=== PATIENT | female | born 1965 | race Asian ===

== ENCOUNTER 2020-04-13 12:55 | Emergency (ER) | payer OTHER ==
[2020-04-13 13:13] VITALS: BMI 33.3
--- NOTE | 2020-04-13 14:10 | PDOC ---
History of Present Illness - General Chief Complaint: AV shunt bleeding Stated Complaint: RT ARM BLEED Time Seen by Provider: 04/13/20 13:24 History Source: Family Exam Limitations: Language Barrier - History of Present Illness Initial Comments: 55 y.o female with history antiphospholipid syndrome, CKD on dialysis with left arm AV fistula, DVT on warfarin, DM, and HTN presents to the ED with bleeding from AV shunt in left arm. She was at dialysis yesterday and had bleeding from the AV shunt site immediately after needle injection, they were unable to complete dialysis. She's had continuous bleeding from the site, but not a significant amount. Her PCP told her to decrease from warfarin BID to qday. She denies lightheadedness, dizziness, syncope, skin changes or rashes. Denies chest pain, SOB, nausea/vomiting, diarrhea, constipation, urinary symptoms, weakness, numbness or tingling. PMH: see HPI SH: Left arm AV Shunt placement, IVC filter Allergies: NKDA Meds: Warfarin, allopurinol Past History - Medical History Allergies/Adverse Reactions: Allergies Allergy/AdvReac Type Severity Reaction Status Date / Time No Known Drug Allergies Allergy Verified 12/02/13 06:27 Home Medications: Ambulatory Orders Ergocalciferol (Vitamin D2) [Vitamin D] 50,000 unit PO DAILY 12/02/13 Ibuprofen [Motrin -] 800 mg PO TID PRN #30 tablet 12/02/13 Iron,Carbonyl [Iron] 45 mg PO DAILY 12/02/13 Misoprostol [Cytotec] 200 mcg PO UTDICT 12/02/13 Anemia: Yes COPD: No Diabetes: Yes Dialysis: Yes GI Disorders: Yes (ESRD) HTN: Yes - Psycho-Social/Smoking History Smoking History: Never smoked Have you smoked in the past 12 months: No Information on smoking cessation initiated: No - Substance Abuse Hx (Audit-C & DAST Scrn) How often the patient has a drink containing alcohol: Never Score: In Men: 4 or > Positive; In Women: 3 or > Positive: 0 Screen Result (Pos requires Nsg. Audit-10AR): Negative In the last yr the pt used illegal drug/Rx for NonMed reason: No Score: Yes response is considered Positive: 0 Screen Result (Positive result requires Nsg. DAST-10): Negative Review of Systems - Review of Systems Able to Perform ROS?: Yes Is the patient limited Pakistani proficient: Yes Constitutional: No: Chills, Fever Respiratory: No: Cough, Shortness of Breath Cardiac (ROS): No: Chest Pain, Edema, Lightheadedness, Palpitations, Syncope ABD/GI: No: Constipated, Diarrhea, Nausea, Vomiting : No: Burning, Dysuria, Frequency Integumentary: No: Bruising, Change in Color, Rash Neurological: No: Numbness, Tingling, Weakness All Other Systems: Reviewed and Negative *Physical Exam - Vital Signs Last Vital Signs Temp Pulse Resp BP Pulse Ox 98.6 F 84 17 136/73 97 04/13/20 12:55 04/13/20 12:55 04/13/20 12:55 04/13/20 12:55 04/13/20 12:55 - Physical Exam General Appearance: Yes: Nourished, Appropriately Dressed. No: Apparent Distress HEENT: positive: EOMI Neck: positive: Trachea midline Respiratory/Chest: positive: Lungs Clear, Normal Breath Sounds. negative: Resp iratory Distress Cardiovascular: positive: Regular Rhythm, Regular Rate, S1, S2, Other (continuous machine-like murmur at left side of chest correlating with left arm AV fistula ) Comments:: 2+ left radial pulse Extremity: positive: Other (left arm sensation and pulses intact; no active bleeding from left arm fistula) Heart Score/ECG Review - Electrocardiogram EKG: Normal - Age Age: 45-65 - ECG Intrepretation Rhythm: Regular Rhythm - [place]: Normal ED Treatment Course - LABORATORY CBC & Chemistry Diagram: 04/13/20 14:05 04/13/20 14:05 Medical Decision Making - Medical Decision Making 55 y.o female with history antiphospholipid syndrome, CKD on dialysis with left arm AV fistula, DVT on warfarin, DM, and HTN presents to the ED with continued bleeding from AV fistula in left arm prior to dialysis yesterday but did not recieve dialysis. She had no other complaints. On exam, the fistula was not actively bleeding. EKG had regular rate, rhythm, axis, without significantly peaked T-waves. CBC demonstrated Hgb 9.3. CMP demonstrated K 4.3, bicarb of 26, Cr 6.2. Coags demonstrated PT 25.9, PTT 102.7, and INR 2.18. I spoke with her bottom steep tender Dr. Jordan Berman, who stated that based on her labs did not require emergent dialysis, but to recommend discharging her home and have her follow up with dialysis tomorrow. Patient is stable and there was no active bleeding from the fistula site, and safe for discharge. 04/13/20 17:15 Discharge - Discharge Information Problems reviewed: Yes Clinical Impression/Diagnosis: Bleeding Condition: Stable Disposition: HOME - Admission No - Follow up/Referral Referrals: Cullen Hernandez MD [Primary Care Provider] - - Patient Discharge Instructions Patient Printed Discharge Instructions: DI for Arteriovenous Fistula for Dialysis Additional Instructions: You came to the ED for continued bleeding from AV fistula site prior to dialysis yesterday. We did labs and EKG which were normal. Some of the labs (coagulation studies) were elevated, and informed Dr. Jordan Berman of the labs. He said that emergent dialysis was not needed today, and to be discharged home and to follow up with dialysis tomorrow, FridayApril 14. Return to the ED if you feel palpitations, chest pain, SOB, or loss of consciousness. - Post Discharge Activity
[2020-04-13 14:43] LABS: BASO % 0.9 % (0-2.0); EOS % 3.7 % (0-4.5); HEMATOCRIT 27.6 % (32.4-45.2); HEMOGLOBIN 9.3 GM/dL (10.7-15.3); LYMPH % 33.7 % (8-40); MCH 30.4 pg (25.7-33.7); MCHC 33.8 g/dl (32.0-36.0); MEAN CELL VOLUME 89.9 fl (80-96); MEAN PLT VOLUME 8.3 fl (7.5-11.1); MONO % 8.7 % (3.8-10.2); PLATELET COUNT 175 K/MM3 (134-434); RBC 3.07 M/mm3 (3.60-5.2); RDW 14.2 % (11.6-15.6); WHITE BLOOD COUNT 5.1 K/mm3 (4.0-10.0)
[2020-04-13 14:50] LABS: INR 2.18 (0.83-1.09); PROTHROMBIN TIME (PATIENT) 25.9 SEC (9.7-13.0)
[2020-04-13 14:53] LABS: ACTIVATED PTT 102.7 SECONDS (25.2-36.5)
[2020-04-13 15:07] LABS: ALBUMIN 3.5 g/dl (3.4-5.0); BILIRUBIN,TOTAL 0.3 mg/dL (0.2-1); BLOOD UREA NITROGEN 62.6 mg/dL (7-18); CALCIUM 7.8 mg/dL (8.5-10.1); CREATININE 6.2 mg/dL (0.55-1.3); POTASSIUM 4.3 mmol/L (3.5-5.1)
--- NOTE | 2020-04-13 15:40 | PDOC ---
Documentation entered by Yasmeen Brand SCRIBE, acting as scribe for Patti Valera MD. Patti Valera MD: This documentation has been prepared by the Cathie quevedo Brenda, SCRIBE, under my direction and personally reviewed by me in its entirety. I confirm that the documentation accurately reflects all work, treatment, procedures, and medical decision making performed by me. Attending Attestation - Resident Resident Name: Bhanu Figueroa - ED Attending Attestation I have performed the following: I have examined & evaluated the patient, The case was reviewed & discussed with the resident, I agree w/resident's findings & plan, Exceptions are as noted - HPI HPI: 04/13/20 14:59 The patient is a 55 year old female with a significant PMH of antiphospholipid syndrome, CKD on dialysis with left arm AV fistula, DVT on warfarin, DM, and HTN who presents to the ED BIBA from her dialysis center for evaluation of AV shunt bleeding. Patient notes that when she was getting fluids in for dialysis, her AV sunt began bleeding so she was sent to the ED via EMS and her bleeding reolved with pressure while in the ambulance. The patient denies chest pain, shortness of breath, headache and dizziness. Denies fever, chills, nausea, vomiting, diarrhea and constipation. Denies dysuria, frequency, urgency and hematuria. Allergies: NKA Social history: No reported hx of tobacco use, alcohol use or illicit drug use. Nephro: Cullen Hernandez - Physicial Exam PE: 04/13/20 15:09 GENERAL: Awake, alert, and fully oriented, in no acute distress LUNGS: Breath sounds equal, clear to auscultation bilaterally. No wheezes, and no crackles HEART: Regular rate and rhythm, normal S1 and S2, no murmurs, rubs or gallops ABDOMEN: Soft, nontender, normoactive bowel sounds. No guarding, no rebound. No masses EXTREMITIES: (+) On LUE there are 3 puncture wounds with no active bleeding. AV Shunt has intact thrill. Normal range of motion, no edema. No clubbing or cyanosis. No cords, erythema, or tenderness NEUROLOGICAL: Cranial nerves II through XII grossly intact. Normal speech, normal gait SKIN: Warm, Dry, normal turgor, no rashes or lesions noted. - Medical Decision Making 04/13/20 15:25 Pt presents to the ED complaining of bleeding from dialysis access. Resolved after pressure by EMS. Denies other complaints. Labs are within normal limits except for elevated ptt. Will discuss with Dr. Ortega for HD vs discharge home. Will reassess. Discharge - Discharge Information Problems reviewed: Yes Clinical Impression/Diagnosis: Bleeding Condition: Stable Disposition: HOME - Follow up/Referral Referrals: Cullen Hernandez MD [Primary Care Provider] - - Patient Discharge Instructions Patient Printed Discharge Instructions: DI for Arteriovenous Fistula for Dialysis Additional Instructions: You came to the ED for continued bleeding from AV fistula site prior to dialysis yesterday. We did labs and EKG which were normal. Some of the labs (coagulation studies) were elevated, and informed Dr. Jordan Berman of the labs. He said that emergent dialysis was not needed today, and to be discharged home and to follow up with dialysis tomorrow, FridayApril 14. Return to the ED if you feel palpitations, chest pain, SOB, or loss of consciousness. - Post Discharge Activity
[2020-04-13 17:04] VITALS: BP 136/78; PULSE 74; TEMP 98.3
--- NOTE | 2020-04-14 10:26 | EKG ---
Test Reason : Blood Pressure : / mmHG Vent. Rate : 071 BPM Atrial Rate : 071 BPM P-R Int : 176 ms QRS Dur : 082 ms QT Int : 446 ms P-R-T Axes : 041 014 043 degrees QTc Int : 484 ms NORMAL SINUS RHYTHM MINIMAL VOLTAGE CRITERIA FOR LVH, MAY BE NORMAL VARIANT PROLONGED QT ABNORMAL ECG WHEN COMPARED WITH ECG OF 27-NOV-2013 10:28, QT HAS LENGTHENED Confirmed by ALLISON DEL RIO, LON ([id number]) on 04/14/2020 10:25:39 AM Referred By: Confirmed By:LON COOPER MD
== END 2020-04-13 17:21 | disposition home or self-care (01) ==
LOC: JER 12:55
DX: R58 Hemorrhage, not elsewhere classified (principal)
CPT/HCPCS: 36415; 80053; 85025; 85610; 85730; 93005; 93010; 99284-25

== ENCOUNTER 2021-08-09 18:15 | Emergency (ER) | payer OTHER ==
[2021-08-09 18:44] VITALS: BP 128/72; PULSE 74; TEMP 98.6; BMI 27.4
== END 2021-08-09 19:30 | disposition left against medical advice (07) ==
LOC: FER 18:15
DX: R10.11 Right upper quadrant pain (principal); R11.2 Nausea with vomiting, unspecified
CPT/HCPCS: 99283-25

== ENCOUNTER 2022-01-07 10:42 | Inpatient (IN) | payer OTHER ==
[2022-01-07 11:26] LABS: BASO % 0.7 % (0-2.0); EOS % 2.2 % (0-4.5); HEMATOCRIT 33.1 % (32.4-45.2); LYMPH % 20.6 % (8-40); MCH 30.9 pg (25.7-33.7); MCHC 33.3 g/dl (32.0-36.0); MEAN CELL VOLUME 92.9 fl (80-96); MEAN PLT VOLUME 8.6 fl (7.5-11.1); MONO % 4.1 % (3.8-10.2); NEUT % 72.4 % (42.8-82.8); PLATELET COUNT 238 10^3/uL (134-434); RBC 3.56 M/mm3 (3.60-5.2); RDW 14.4 % (11.6-15.6); WHITE BLOOD COUNT 10.5 K/mm3 (4.0-10.0)
[2022-01-07 11:32] LABS: INR 2.81 (0.83-1.09); PROTHROMBIN TIME (PATIENT) 32.7 SEC (9.7-13.0)
[2022-01-07 11:35] LABS: ACTIVATED PTT 98.6 SECONDS (25.2-36.5)
[2022-01-07] MEDS ORDERED: ACETAMINOPHEN 1000 MG/100 ML BAG IVPB ONE (11:42)
[2022-01-07] MEDS ORDERED: ACETAMINOPHEN INJECTION 100 ML IVPB ONE (11:45)
[2022-01-07 11:46] LABS: VENOUS BASE EXCESS -1.3 mmol/L (-2-2); VENOUS O2 SATURATION 94.4 % (70-80); VENOUS PCO2 40.7 mmHg (38-52); VENOUS PH 7.383 (7.310-7.410)
[2022-01-07 11:50] LABS: CHLORIDE 97 mmol/L (98-107); SODIUM 136 mmol/L (136-145)
[2022-01-07 11:53] LABS: CALCIUM 7.9 mg/dL (8.5-10.1)
[2022-01-07 11:54] LABS: ALBUMIN 3.6 g/dl (3.4-5.0); ANION GAP 14 MMOL/L (8-16); BLOOD UREA NITROGEN 67.5 mg/dL (7-18); CO2 26 mmol/L (21-32); GLUCOSE,RANDOM 163 mg/dL (74-106)
[2022-01-07 11:57] LABS: SGOT/AST 81 U/L (15-37); SGPT/ALT 173 U/L (13-61)
[2022-01-07 11:59] LABS: BILIRUBIN,TOTAL 0.5 mg/dL (0.2-1); TOT PROT 7.6 g/dl (6.4-8.2)
[2022-01-07 12:00] LABS: ALK PHOS 169 U/L (45-117)
[2022-01-07] MEDS ORDERED: morphine CARPU-JECT 2 MG/1 ML DISP.SYRIN IVPUSH ONE (12:05)
[2022-01-07 12:08] LABS: EPI CELLS 27 /uL (0-25.1); HYALINE CASTS 1 /uL (0-3.1); PH,URINE >= 9.0 (5.0-8.0); URINE APPEARANCE CLEAR; URINE BACTERIA 184 /uL (0-1359); URINE BILIRUBIN NEGATIVE (NEGATIVE); URINE COLOR YELLOW; URINE GLUCOSE (UA) TRACE (NEGATIVE); URINE KETONE NEGATIVE (NEGATIVE); URINE LEUK ESTERASE NEGATIVE (NEGATIVE); URINE NITRITE NEGATIVE (NEGATIVE); URINE PROTEIN 3+ (NEGATIVE); URINE RBC 3 /uL (0-23.9); URINE UROBILINOGEN 0.2 mg/dL (0.2-1.0); URINE WBC 26 /uL (0-25.8)
[2022-01-07 12:11] LABS: CREATININE 8.2 mg/dL (0.55-1.3)
[2022-01-07] MEDS ORDERED: CEFTRIAXONE 1 GM in DEXTROSE 5%-WATER - 50 ML IVPB ONE (12:40)
[2022-01-07] MEDS ORDERED: AZITHROMYCIN IVPB 500 MG in DEXTROSE 5%-WATER - 250 ML IVPB ONE (12:41)
[2022-01-07] MEDS ORDERED: CEFTRIAXONE 1 GM/50 ML BAG ONE (12:50)
[2022-01-07] MEDS ORDERED: AZITHROMYCIN IVPB 500 MG/250 ML BAG IVPB ONE (12:50)
[2022-01-07] MEDS ORDERED: FUROSEMIDE 40 MG/4 ML INJECTABLE VIAL IVPUSH ONE ×2 (13:49→15:22)
[2022-01-07] MEDS ORDERED: ONDANSETRON 4 MG/2 ML VIAL IVPUSH ONE (13:55)
[2022-01-07] MEDS ORDERED: ONDANSETRON 4 MG/2 ML VIAL ONE (13:57)
[2022-01-07] MEDS ORDERED: FUROSEMIDE 40 MG/4 ML INJECTABLE VIAL ONE ×2 (14:01→14:23)
[2022-01-07] MEDS ORDERED: RAPID SEQUENCE INTUBATION KIT NR ONE (14:06)
[2022-01-07] MEDS ORDERED: SODIUM CHLORIDE 250 ML IV PRN (14:11)
[2022-01-07] MEDS ORDERED: FENTANYL NS IVPB 500 MCG/100 ML BAG IVPB SCH (14:30)
[2022-01-07] MEDS ORDERED: MIDAZOLAM IN 0.9 % SOD.CHLORID 1 MG/1 ML PLAST..BAG ONE (14:47)
[2022-01-07] MEDS: MIDAZOLAM IN 0.9 % SOD.CHLORID 100 MG/100 ML PLAST..BAG IVPB SCH (14:50)
[2022-01-07] MEDS ORDERED: ROCURONIUM BROMIDE 50 MG/5 ML VIAL IVPUSH ONE (15:17)
[2022-01-07] MEDS ORDERED: ETOMIDATE 40 MG/20 ML VIAL IVPUSH ONE (15:17)
[2022-01-07] MEDS: PROPOFOL 1,000,000 MCG/100 ML VIAL IVPB SCH (15:21)
[2022-01-07] MEDS: INSULIN SLIDING SCALE (NOVOLOG) 1 VIAL SQ SCH ×2 (21:15→21:22)
[2022-01-07] MEDS: HEPARIN NA (PORCINE) 5,000 UNITS/ML 1ML VIAL SQ SCH (21:21)
[2022-01-07] MEDS: CHLORHEXIDINE GLUCONATE 4% CLEANSER FOR DECOLONIZATION TP SCH (21:22)
[2022-01-07] MEDS: MUPIROCIN 2% TOPICAL OINTMENT FOR DECOLONIZATION NS SCH (21:22)
[2022-01-07] MEDS: ROSUVASTATIN CA 10 MG TABLET PO SCH (21:22)
[2022-01-08] MEDS ORDERED: ACETAMINOPHEN 1000 MG/100 ML BAG IVPB ONE (03:10)
[2022-01-08] MEDS: HEPARIN NA (PORCINE) 5,000 UNITS/ML 1ML VIAL SQ SCH (05:37)
[2022-01-08] MEDS ORDERED: DEXTROSE 50%-WATER - 25 GM/50 ML VIAL IVPUSH ONE (06:04)
[2022-01-08] MEDS ORDERED: DEXTROSE 50%-WATER 25 GM/50 ML DISP.SYRIN ONE (06:07)
[2022-01-08] MEDS: LEVOTHYROXINE NA 25 MCG TABLET (FP) PO SCH (06:08)
[2022-01-08] MEDS: INSULIN SLIDING SCALE (NOVOLOG) 1 VIAL SQ SCH ×4 (06:08→22:28)
[2022-01-08 06:50] LABS: BASO % 0.7 % (0-2.0); HEMATOCRIT 25.5 % (32.4-45.2); HEMOGLOBIN 8.5 GM/dL (10.7-15.3); LYMPH % 19.2 % (8-40); MCH 31.5 pg (25.7-33.7); MCHC 33.5 g/dl (32.0-36.0); MEAN PLT VOLUME 8.6 fl (7.5-11.1); MONO % 5.1 % (3.8-10.2); PLATELET COUNT 164 10^3/uL (134-434); RBC 2.71 M/mm3 (3.60-5.2); RDW 14.4 % (11.6-15.6); WHITE BLOOD COUNT 6.2 K/mm3 (4.0-10.0)
[2022-01-08] MEDS: MIDAZOLAM IN 0.9 % SOD.CHLORID 100 MG/100 ML PLAST..BAG IVPB SCH ×2 (08:16→17:09)
[2022-01-08 08:58] LABS: CHLORIDE 99 mmol/L (98-107); SODIUM 136 mmol/L (136-145)
[2022-01-08 09:01] LABS: BLOOD UREA NITROGEN 83.4 mg/dL (7-18); CO2 19 mmol/L (21-32); GLUCOSE,RANDOM 79 mg/dL (74-106); MAGNESIUM 2.9 mg/dL (1.8-2.4)
[2022-01-08 09:04] LABS: PHOSPHOROUS 6.2 mg/dL (2.5-4.9); SGOT/AST 37 U/L (15-37); SGPT/ALT 103 U/L (13-61)
[2022-01-08 09:06] LABS: BILIRUBIN,TOTAL 0.4 mg/dL (0.2-1); TOT PROT 6.3 g/dl (6.4-8.2)
[2022-01-08 09:11] LABS: ALBUMIN 2.7 g/dl (3.4-5.0); ALK PHOS 125 U/L (45-117); ANION GAP 19 MMOL/L (8-16); CREATININE 9.8 mg/dL (0.55-1.3)
[2022-01-08] MEDS: ALBUMIN HUMAN 25% 100 ML VIAL IV SCH ×2 (09:58→10:39)
[2022-01-08] MEDS ORDERED: EPOETIN ALFA-EPBX 3,000 UNIT/ML VIAL SQ ONE (10:00)
[2022-01-08] MEDS: metoPROLOL SUCCINATE 25 MG TAB.SR.24H (FP) PO SCH (10:16)
[2022-01-08] MEDS: MUPIROCIN 2% TOPICAL OINTMENT FOR DECOLONIZATION NS SCH ×2 (10:16→21:55)
[2022-01-08] MEDS: ALLOPURINOL 100 MG TABLET (FP) PO SCH (10:16)
[2022-01-08] MEDS: VERAPAMIL HCL 180 MG E.R. TABLET PO SCH ×2 (14:27)
[2022-01-08] MEDS: PROPOFOL 1,000,000 MCG/100 ML VIAL IVPB SCH ×2 (14:29→21:00)
[2022-01-08] MEDS: ROSUVASTATIN CA 10 MG TABLET PO SCH (21:54)
[2022-01-08] MEDS: CHLORHEXIDINE GLUCONATE 4% CLEANSER FOR DECOLONIZATION TP SCH (21:55)
[2022-01-09] MEDS: PROPOFOL 1,000,000 MCG/100 ML VIAL IVPB SCH ×3 (05:00→22:17)
[2022-01-09] MEDS: LEVOTHYROXINE NA 25 MCG TABLET (FP) PO SCH (06:20)
[2022-01-09] MEDS: INSULIN SLIDING SCALE (NOVOLOG) 1 VIAL SQ SCH ×4 (06:20→22:15)
[2022-01-09 07:26] LABS: BASO % 1.2 % (0-2.0); HEMOGLOBIN 8.2 GM/dL (10.7-15.3); LYMPH % 21.9 % (8-40); MEAN CELL VOLUME 93.8 fl (80-96); MEAN PLT VOLUME 8.8 fl (7.5-11.1); MONO % 6.5 % (3.8-10.2); NEUT % 66.4 % (42.8-82.8); PLATELET COUNT 174 10^3/uL (134-434); RBC 2.66 M/mm3 (3.60-5.2); RDW 14.7 % (11.6-15.6); WHITE BLOOD COUNT 4.6 K/mm3 (4.0-10.0)
[2022-01-09] MEDS: MIDAZOLAM IN 0.9 % SOD.CHLORID 100 MG/100 ML PLAST..BAG IVPB SCH (08:06)
[2022-01-09 08:17] LABS: ALBUMIN 2.8 g/dl (3.4-5.0); MAGNESIUM 2.5 mg/dL (1.8-2.4)
[2022-01-09 08:20] LABS: CREATININE 6.8 mg/dL (0.55-1.3); PHOSPHOROUS 5.2 mg/dL (2.5-4.9)
[2022-01-09 08:21] LABS: BILIRUBIN,TOTAL 0.5 mg/dL (0.2-1); TOT PROT 6.3 g/dl (6.4-8.2)
[2022-01-09] MEDS: HEPARIN NA (PORCINE) 5,000 UNITS/ML 1ML VIAL SQ SCH ×2 (08:26→15:08)
[2022-01-09 08:39] LABS: BLOOD UREA NITROGEN 49.6 mg/dL (7-18); CALCIUM 8.3 mg/dL (8.5-10.1)
[2022-01-09] MEDS: ALLOPURINOL 100 MG TABLET (FP) PO SCH (09:13)
[2022-01-09] MEDS: MUPIROCIN 2% TOPICAL OINTMENT FOR DECOLONIZATION NS SCH ×2 (09:13→22:14)
[2022-01-09] MEDS: metoPROLOL SUCCINATE 25 MG TAB.SR.24H (FP) PO SCH (09:13)
[2022-01-09] MEDS: VERAPAMIL HCL 180 MG E.R. TABLET PO SCH (09:13)
[2022-01-09 09:59] LABS: INR 1.93 (0.83-1.09); PROTHROMBIN TIME (PATIENT) 22.4 SEC (9.7-13.0)
[2022-01-09 10:01] LABS: ACTIVATED PTT 84.8 SECONDS (25.2-36.5)
[2022-01-09] MEDS ORDERED: FUROSEMIDE 40 MG/4 ML INJECTABLE VIAL IVPUSH ONE (14:09)
[2022-01-09] MEDS ORDERED: WARFARIN NA 5 MG TABLET PO SCH (22:00)
[2022-01-09] MEDS: ROSUVASTATIN CA 10 MG TABLET PO SCH (22:14)
[2022-01-09] MEDS: CHLORHEXIDINE GLUCONATE 4% CLEANSER FOR DECOLONIZATION TP SCH (22:15)
[2022-01-10] MEDS: LEVOTHYROXINE NA 25 MCG TABLET (FP) PO SCH (06:34)
[2022-01-10] MEDS: INSULIN SLIDING SCALE (NOVOLOG) 1 VIAL SQ SCH ×4 (06:35→21:34)
[2022-01-10] MEDS ORDERED: SODIUM CHLORIDE 250 ML IV PRN (07:17)
[2022-01-10 07:26] LABS: EOS % 3.8 % (0-4.5); HEMATOCRIT 24.4 % (32.4-45.2); HEMOGLOBIN 8.3 GM/dL (10.7-15.3); LYMPH % 18.8 % (8-40); MCH 31.5 pg (25.7-33.7); MCHC 34.1 g/dl (32.0-36.0); MEAN CELL VOLUME 92.2 fl (80-96); MEAN PLT VOLUME 8.1 fl (7.5-11.1); MONO % 7.1 % (3.8-10.2); NEUT % 69.3 % (42.8-82.8); PLATELET COUNT 194 10^3/uL (134-434); RBC 2.65 M/mm3 (3.60-5.2); RDW 14.4 % (11.6-15.6); WHITE BLOOD COUNT 4.8 K/mm3 (4.0-10.0)
[2022-01-10 07:34] LABS: INR 1.6 (0.83-1.09); PROTHROMBIN TIME (PATIENT) 18.5 SEC (9.7-13.0)
[2022-01-10 07:40] LABS: CHLORIDE 101 mmol/L (98-107); SODIUM 140 mmol/L (136-145)
[2022-01-10 07:47] LABS: ALBUMIN 2.8 g/dl (3.4-5.0); ANION GAP 13 MMOL/L (8-16); BLOOD UREA NITROGEN 71.8 mg/dL (7-18); CALCIUM 7.9 mg/dL (8.5-10.1); CO2 26 mmol/L (21-32); GLUCOSE,RANDOM 122 mg/dL (74-106)
[2022-01-10 07:48] LABS: MAGNESIUM 2.8 mg/dL (1.8-2.4)
[2022-01-10 07:49] LABS: SGPT/ALT 73 U/L (13-61)
[2022-01-10 07:50] LABS: PHOSPHOROUS 7.3 mg/dL (2.5-4.9); SGOT/AST 44 U/L (15-37)
[2022-01-10 07:51] LABS: BILIRUBIN,TOTAL 0.5 mg/dL (0.2-1); TOT PROT 6.4 g/dl (6.4-8.2)
[2022-01-10 08:00] LABS: ALK PHOS 187 U/L (45-117); CREATININE 8.3 mg/dL (0.55-1.3)
[2022-01-10] MEDS: ALBUMIN HUMAN 25% 12.5 GM/50 ML VIAL IV SCH ×2 (08:00→08:30)
[2022-01-10] MEDS ORDERED: EPOETIN ALFA-EPBX 4,000 UNIT/ML VIAL SQ ONE (08:00)
[2022-01-10] MEDS: PROPOFOL 1,000,000 MCG/100 ML VIAL IVPB SCH ×5 (08:06→21:33)
[2022-01-10] MEDS: MIDAZOLAM IN 0.9 % SOD.CHLORID 100 MG/100 ML PLAST..BAG IVPB SCH (10:09)
[2022-01-10] MEDS: AMINO ACIDS/PROTEIN HYDROLYS 30 ML LIQUID.PKT PO SCH (11:01)
[2022-01-10] MEDS: ALLOPURINOL 100 MG TABLET (FP) PO SCH (11:01)
[2022-01-10] MEDS: metoPROLOL SUCCINATE 25 MG TAB.SR.24H (FP) PO SCH (11:01)
[2022-01-10] MEDS: VERAPAMIL HCL 180 MG E.R. TABLET PO SCH (11:01)
[2022-01-10] MEDS: MUPIROCIN 2% TOPICAL OINTMENT FOR DECOLONIZATION NS SCH ×2 (11:01→21:33)
[2022-01-10] MEDS: FUROSEMIDE INJECTION 100 MG in SODIUM CHLORIDE 40 ML IVPB SCH ×2 (11:32→21:34)
[2022-01-10] MEDS ORDERED: WARFARIN NA 7.5 MG TABLET PO SCH (18:00)
[2022-01-10] MEDS ORDERED: WARFARIN NA 5 MG TABLET PO SCH (18:00)
[2022-01-10] MEDS: ACETAMINOPHEN 1000 MG/100 ML BAG IVPB PRN (18:54)
[2022-01-10] MEDS: ROSUVASTATIN CA 10 MG TABLET PO SCH (21:33)
[2022-01-10] MEDS: CHLORHEXIDINE GLUCONATE 4% CLEANSER FOR DECOLONIZATION TP SCH (21:34)
[2022-01-11] MEDS: LEVOTHYROXINE NA 25 MCG TABLET (FP) PO SCH ×2 (07:14→07:16)
[2022-01-11] MEDS: MIDAZOLAM IN 0.9 % SOD.CHLORID 100 MG/100 ML PLAST..BAG IVPB SCH ×2 (07:14→14:09)
[2022-01-11] MEDS: INSULIN SLIDING SCALE (NOVOLOG) 1 VIAL SQ SCH ×4 (07:14→21:41)
[2022-01-11 07:26] LABS: INR 1.3 (0.83-1.09)
[2022-01-11 07:29] LABS: BASO % 1.3 % (0-2.0); HEMATOCRIT 24.7 % (32.4-45.2); HEMOGLOBIN 8.5 GM/dL (10.7-15.3); LYMPH % 17.6 % (8-40); MCH 31.7 pg (25.7-33.7); MCHC 34.2 g/dl (32.0-36.0); MEAN CELL VOLUME 92.7 fl (80-96); MEAN PLT VOLUME 7.8 fl (7.5-11.1); NEUT % 68.1 % (42.8-82.8); PLATELET COUNT 220 10^3/uL (134-434); RBC 2.67 M/mm3 (3.60-5.2); RDW 14.2 % (11.6-15.6); WHITE BLOOD COUNT 4.3 K/mm3 (4.0-10.0)
[2022-01-11 08:04] LABS: ALBUMIN 3.1 g/dl (3.4-5.0); CALCIUM 8.3 mg/dL (8.5-10.1)
[2022-01-11 08:05] LABS: BLOOD UREA NITROGEN 48.7 mg/dL (7-18); MAGNESIUM 2.5 mg/dL (1.8-2.4)
[2022-01-11 08:07] LABS: CREATININE 5.6 mg/dL (0.55-1.3); PHOSPHOROUS 6.1 mg/dL (2.5-4.9)
[2022-01-11 08:09] LABS: BILIRUBIN,TOTAL 0.7 mg/dL (0.2-1); TOT PROT 6.8 g/dl (6.4-8.2)
[2022-01-11] MEDS: PROPOFOL 1,000,000 MCG/100 ML VIAL IVPB SCH ×3 (09:07→21:41)
[2022-01-11] MEDS: PANTOPRAZOLE SODIUM 40 MG VIAL IVPUSH SCH (09:23)
[2022-01-11] MEDS: AMINO ACIDS/PROTEIN HYDROLYS 30 ML LIQUID.PKT PO SCH (09:24)
[2022-01-11] MEDS: ALLOPURINOL 100 MG TABLET (FP) PO SCH (09:24)
[2022-01-11] MEDS: MUPIROCIN 2% TOPICAL OINTMENT FOR DECOLONIZATION NS SCH ×2 (09:24→21:41)
[2022-01-11] MEDS: metoPROLOL SUCCINATE 25 MG TAB.SR.24H (FP) PO SCH (09:24)
[2022-01-11] MEDS: VERAPAMIL HCL 180 MG E.R. TABLET PO SCH (09:24)
[2022-01-11] MEDS ORDERED: WARFARIN NA 5 MG TABLET PO ONE (10:00)
[2022-01-11] MEDS ORDERED: PIPERACILLIN/TAZOB 2.25 GM 2.25 GM in DEXTROSE 5%-WATER - 50 ML IVPB SCH (10:30)
[2022-01-11] MEDS ORDERED: PIPERACILLIN/TAZOBACTAM 2.25 GM VIAL IVPB ONE ×4 (10:46→20:21)
[2022-01-11] MEDS ORDERED: DEXTROSE 5%-WATER - 50 ML IVPB ONE ×4 (10:46→20:21)
[2022-01-11] MEDS: PIPERACILLIN/TAZOB 2.25 GM 2.25 GM in DEXTROSE 5%-WATER - 50 ML IVPB SCH ×3 (10:52→21:45)
[2022-01-11] MEDS: FUROSEMIDE INJECTION 100 MG in SODIUM CHLORIDE 40 ML IVPB SCH (11:53)
[2022-01-11] MEDS: ACETAMINOPHEN 1000 MG/100 ML BAG IVPB PRN ×2 (11:59→18:09)
[2022-01-11] MEDS ORDERED: HEPARIN NA (PORCINE) 5,000 UNITS/ML 1ML VIAL SQ SCH (14:00)
[2022-01-11] MEDS: WARFARIN NA 10 MG TABLET PO SCH (18:06)
[2022-01-11] MEDS: CHLORHEXIDINE GLUCONATE 4% CLEANSER FOR DECOLONIZATION TP SCH (21:41)
[2022-01-11] MEDS: ROSUVASTATIN CA 10 MG TABLET PO SCH (21:41)
[2022-01-12] MEDS: PROPOFOL 1,000,000 MCG/100 ML VIAL IVPB SCH ×5 (02:11→22:10)
[2022-01-12] MEDS ORDERED: PIPERACILLIN/TAZOBACTAM 2.25 GM VIAL IVPB ONE (02:18)
[2022-01-12] MEDS ORDERED: DEXTROSE 5%-WATER - 50 ML IVPB ONE (02:18)
[2022-01-12] MEDS: PIPERACILLIN/TAZOB 2.25 GM 2.25 GM in DEXTROSE 5%-WATER - 50 ML IVPB SCH (02:24)
[2022-01-12] MEDS: INSULIN SLIDING SCALE (NOVOLOG) 1 VIAL SQ SCH ×4 (06:18→22:25)
[2022-01-12] MEDS: LEVOTHYROXINE NA 25 MCG TABLET (FP) PO SCH (06:23)
[2022-01-12] MEDS: MIDAZOLAM IN 0.9 % SOD.CHLORID 100 MG/100 ML PLAST..BAG IVPB SCH ×2 (06:56→07:35)
[2022-01-12 07:00] LABS: BASO % 1.2 % (0-2.0); EOS % 5.4 % (0-4.5); HEMATOCRIT 24.7 % (32.4-45.2); HEMOGLOBIN 8.4 GM/dL (10.7-15.3); LYMPH % 20.4 % (8-40); MCH 31.5 pg (25.7-33.7); MCHC 34.1 g/dl (32.0-36.0); MEAN CELL VOLUME 92.4 fl (80-96); MEAN PLT VOLUME 7.6 fl (7.5-11.1); PLATELET COUNT 231 10^3/uL (134-434); RBC 2.67 M/mm3 (3.60-5.2); RDW 14.4 % (11.6-15.6); WHITE BLOOD COUNT 4.6 K/mm3 (4.0-10.0)
[2022-01-12 07:01] LABS: INR 1.72 (0.83-1.09); PROTHROMBIN TIME (PATIENT) 19.9 SEC (9.7-13.0)
[2022-01-12 07:18] LABS: ALBUMIN 2.8 g/dl (3.4-5.0); MAGNESIUM 2.6 mg/dL (1.8-2.4)
[2022-01-12 07:21] LABS: PHOSPHOROUS 7.1 mg/dL (2.5-4.9)
[2022-01-12 07:22] LABS: BILIRUBIN,TOTAL 0.5 mg/dL (0.2-1); CREATININE 7.1 mg/dL (0.55-1.3); TOT PROT 6.4 g/dl (6.4-8.2)
[2022-01-12] MEDS ORDERED: EPOETIN ALFA-EPBX 4,000 UNIT/ML VIAL SQ ONE (08:15)
[2022-01-12] MEDS ORDERED: SODIUM CHLORIDE 250 ML IV PRN (10:42)
[2022-01-12] MEDS: metoPROLOL SUCCINATE 25 MG TAB.SR.24H (FP) PO SCH (11:23)
[2022-01-12] MEDS: VERAPAMIL HCL 180 MG E.R. TABLET PO SCH (11:23)
[2022-01-12] MEDS: ALLOPURINOL 100 MG TABLET (FP) PO SCH (11:23)
[2022-01-12] MEDS: AMINO ACIDS/PROTEIN HYDROLYS 30 ML LIQUID.PKT PO SCH ×2 (11:23→17:36)
[2022-01-12] MEDS: PANTOPRAZOLE SODIUM 40 MG VIAL IVPUSH SCH (11:23)
[2022-01-12] MEDS: MUPIROCIN 2% TOPICAL OINTMENT FOR DECOLONIZATION NS SCH (11:24)
[2022-01-12] MEDS ORDERED: AMINO ACIDS/PROTEIN HYDROLYS 30 ML LIQUID.PKT PO SCH (17:30)
[2022-01-12] MEDS: WARFARIN NA 10 MG TABLET PO SCH (17:51)
[2022-01-12] MEDS: CHLORHEXIDINE GLUCONATE 4% CLEANSER FOR DECOLONIZATION TP SCH (21:57)
[2022-01-12] MEDS: ROSUVASTATIN CA 10 MG TABLET PO SCH (21:57)
[2022-01-13] MEDS: LEVOTHYROXINE NA 25 MCG TABLET (FP) PO SCH (06:09)
[2022-01-13] MEDS: INSULIN SLIDING SCALE (NOVOLOG) 1 VIAL SQ SCH ×4 (06:38→21:51)
[2022-01-13] MEDS: SCOPOLAMINE HYDROBROMIDE 1 PATCH PATCH.TD72 TD SCH (06:42)
[2022-01-13] MEDS: MIDAZOLAM IN 0.9 % SOD.CHLORID 100 MG/100 ML PLAST..BAG IVPB SCH (06:48)
[2022-01-13 07:08] LABS: HEMATOCRIT 24.6 % (32.4-45.2); HEMOGLOBIN 8.4 GM/dL (10.7-15.3); MCH 31.6 pg (25.7-33.7); MCHC 34.2 g/dl (32.0-36.0); MEAN CELL VOLUME 92.3 fl (80-96); MEAN PLT VOLUME 7.8 fl (7.5-11.1); PLATELET COUNT 243 10^3/uL (134-434); RBC 2.67 M/mm3 (3.60-5.2); RDW 14.2 % (11.6-15.6); WHITE BLOOD COUNT 5.4 K/mm3 (4.0-10.0)
[2022-01-13] MEDS: AMINO ACIDS/PROTEIN HYDROLYS 30 ML LIQUID.PKT PO SCH ×2 (08:00→16:44)
[2022-01-13 08:13] LABS: BILIRUBIN,TOTAL 0.8 mg/dL (0.2-1); BLOOD UREA NITROGEN 53.6 mg/dL (7-18); CALCIUM 8.6 mg/dL (8.5-10.1); CREATININE 5.3 mg/dL (0.55-1.3); MAGNESIUM 2.6 mg/dL (1.8-2.4); PHOSPHOROUS 5.4 mg/dL (2.5-4.9); TOT PROT 6.8 g/dl (6.4-8.2)
[2022-01-13] MEDS: PANTOPRAZOLE SODIUM 40 MG VIAL IVPUSH SCH (09:13)
[2022-01-13] MEDS: ALLOPURINOL 100 MG TABLET (FP) PO SCH (09:14)
[2022-01-13] MEDS: VERAPAMIL HCL 180 MG E.R. TABLET PO SCH (09:14)
[2022-01-13] MEDS: METOPROLOL TARTRATE 25 MG TABLET (FP) NGT SCH ×2 (09:14→16:44)
[2022-01-13] MEDS ORDERED: RAPID SEQUENCE INTUBATION KIT NR ONE (10:40)
[2022-01-13 11:09] LABS: PLATELET ESTIMATE ADEQUATE
[2022-01-13] MEDS ORDERED: LORazepam 2 MG/ML SDV VIAL IVPUSH ONE (11:15)
[2022-01-13] MEDS: PROPOFOL 1,000,000 MCG/100 ML VIAL IVPB SCH ×2 (11:43→17:02)
[2022-01-13] MEDS ORDERED: cefTRIAXone SODIUM 1 GM VIAL ONE (12:42)
[2022-01-13] MEDS ORDERED: DEXTROSE 5%-WATER - 50 ML IVPB ONE (12:42)
[2022-01-13] MEDS: CEFTRIAXONE 1 GM in DEXTROSE 5%-WATER - 50 ML IVPB SCH (12:44)
[2022-01-13] MEDS ORDERED: ROCURONIUM BROMIDE 50 MG/5 ML VIAL IVPUSH ONE (12:57)
[2022-01-13] MEDS ORDERED: PROPOFOL 200 MG/20 ML VIAL IVPUSH ONE (12:58)
[2022-01-13] MEDS: WARFARIN NA 10 MG TABLET PO SCH (17:18)
[2022-01-13] MEDS ORDERED: MIDAZOLAM IN 0.9 % SOD.CHLORID 100 MG/100 ML PLAST..BAG IVPB SCH (17:30)
[2022-01-13] MEDS: ROSUVASTATIN CA 10 MG TABLET PO SCH (21:51)
[2022-01-13] MEDS: CHLORHEXIDINE GLUCONATE 4% CLEANSER FOR DECOLONIZATION TP SCH (21:51)
[2022-01-14] MEDS: METOPROLOL TARTRATE 25 MG TABLET (FP) NGT SCH ×3 (01:15→16:28)
[2022-01-14] MEDS ORDERED: DEXTROSE 50%-WATER 25 GM/50 ML DISP.SYRIN IVPUSH ONE (06:27)
[2022-01-14] MEDS: INSULIN SLIDING SCALE (NOVOLOG) 1 VIAL SQ SCH ×4 (06:29→21:27)
[2022-01-14] MEDS: LEVOTHYROXINE NA 25 MCG TABLET (FP) PO SCH (06:30)
[2022-01-14] MEDS ORDERED: DEXTROSE 50%-WATER 25 GM/50 ML DISP.SYRIN ONE (06:58)
[2022-01-14 07:06] LABS: HEMATOCRIT 23.7 % (32.4-45.2); MCH 31.6 pg (25.7-33.7); MCHC 33.7 g/dl (32.0-36.0); MEAN CELL VOLUME 93.8 fl (80-96); PLATELET COUNT 259 10^3/uL (134-434); RBC 2.53 M/mm3 (3.60-5.2); RDW 14.1 % (11.6-15.6); WHITE BLOOD COUNT 5.4 K/mm3 (4.0-10.0)
[2022-01-14] MEDS ORDERED: SODIUM CHLORIDE 250 ML IV PRN (07:32)
[2022-01-14 07:45] LABS: ALBUMIN 2.9 g/dl (3.4-5.0); CALCIUM 8.7 mg/dL (8.5-10.1)
[2022-01-14 07:46] LABS: BLOOD UREA NITROGEN 77.4 mg/dL (7-18); MAGNESIUM 2.5 mg/dL (1.8-2.4)
[2022-01-14 07:48] LABS: CREATININE 7.2 mg/dL (0.55-1.3); PHOSPHOROUS 7.2 mg/dL (2.5-4.9)
[2022-01-14 07:50] LABS: BILIRUBIN,TOTAL 0.6 mg/dL (0.2-1); TOT PROT 6.8 g/dl (6.4-8.2)
[2022-01-14] MEDS: AMINO ACIDS/PROTEIN HYDROLYS 30 ML LIQUID.PKT PO SCH ×2 (09:19→16:39)
[2022-01-14] MEDS ORDERED: DEXTROSE 5%-WATER - 50 ML IVPB ONE (09:31)
[2022-01-14] MEDS ORDERED: cefTRIAXone SODIUM 1 GM VIAL ONE (09:31)
[2022-01-14] MEDS ORDERED: EPOETIN ALFA-EPBX 10,000 UNIT/ML VIAL SQ ONE (10:00)
[2022-01-14] MEDS: PROPOFOL 1,000,000 MCG/100 ML VIAL IVPB SCH ×2 (11:45→17:16)
[2022-01-14] MEDS: PANTOPRAZOLE SODIUM 40 MG VIAL IVPUSH SCH (16:25)
[2022-01-14] MEDS: CEFTRIAXONE 1 GM in DEXTROSE 5%-WATER - 50 ML IVPB SCH (16:26)
[2022-01-14] MEDS: VERAPAMIL HCL 180 MG E.R. TABLET PO SCH (16:28)
[2022-01-14] MEDS: ALLOPURINOL 100 MG TABLET (FP) PO SCH (16:39)
[2022-01-14] MEDS: WARFARIN NA 10 MG TABLET PO SCH (17:07)
[2022-01-14] MEDS: ROSUVASTATIN CA 10 MG TABLET PO SCH (21:26)
[2022-01-14] MEDS: CHLORHEXIDINE GLUCONATE 4% CLEANSER FOR DECOLONIZATION TP SCH (21:26)
[2022-01-14] MEDS: MUPIROCIN 2% TOPICAL OINTMENT FOR DECOLONIZATION NS SCH (21:27)
[2022-01-15] MEDS: METOPROLOL TARTRATE 25 MG TABLET (FP) NGT SCH ×3 (00:59→18:13)
[2022-01-15] MEDS: PROPOFOL 1,000,000 MCG/100 ML VIAL IVPB SCH ×4 (01:00→21:10)
[2022-01-15] MEDS: LEVOTHYROXINE NA 25 MCG TABLET (FP) PO SCH (06:10)
[2022-01-15] MEDS: INSULIN SLIDING SCALE (NOVOLOG) 1 VIAL SQ SCH ×4 (06:49→21:13)
[2022-01-15 07:22] LABS: INR 1.46 (0.83-1.09); PROTHROMBIN TIME (PATIENT) 16.9 SEC (9.7-13.0)
[2022-01-15 07:26] LABS: HEMATOCRIT 28.1 % (32.4-45.2); HEMOGLOBIN 9.6 GM/dL (10.7-15.3); MCH 31.8 pg (25.7-33.7); MCHC 34.2 g/dl (32.0-36.0); MEAN PLT VOLUME 7.8 fl (7.5-11.1); PLATELET COUNT 291 10^3/uL (134-434); RBC 3.02 M/mm3 (3.60-5.2); RDW 14.1 % (11.6-15.6)
[2022-01-15 08:35] LABS: ALBUMIN 3.2 g/dl (3.4-5.0); BILIRUBIN,TOTAL 0.2 mg/dL (0.2-1); CALCIUM 8.8 mg/dL (8.5-10.1); CREATININE 1.6 mg/dL (0.55-1.3); MAGNESIUM 2.5 mg/dL (1.8-2.4); PHOSPHOROUS 3.9 mg/dL (2.5-4.9); TOT PROT 6.6 g/dl (6.4-8.2)
[2022-01-15] MEDS: AMINO ACIDS/PROTEIN HYDROLYS 30 ML LIQUID.PKT PO SCH ×2 (08:55→18:13)
[2022-01-15] MEDS ORDERED: DEXTROSE 5%-WATER - 50 ML IVPB ONE (09:04)
[2022-01-15] MEDS ORDERED: cefTRIAXone SODIUM 1 GM VIAL ONE (09:04)
[2022-01-15] MEDS: PANTOPRAZOLE SODIUM 40 MG VIAL IVPUSH SCH (09:12)
[2022-01-15] MEDS: VERAPAMIL HCL 180 MG E.R. TABLET PO SCH (09:12)
[2022-01-15] MEDS: MUPIROCIN 2% TOPICAL OINTMENT FOR DECOLONIZATION NS SCH ×2 (09:12→21:09)
[2022-01-15] MEDS: CEFTRIAXONE 1 GM in DEXTROSE 5%-WATER - 50 ML IVPB SCH (09:14)
[2022-01-15] MEDS: ALLOPURINOL 100 MG TABLET (FP) PO SCH (09:14)
[2022-01-15] MEDS ORDERED: SODIUM CHLORIDE 250 ML IV PRN (11:36)
[2022-01-15] MEDS ORDERED: METOPROLOL TARTRATE 5 MG/5 ML VIAL IVPUSH PRN (11:47)
[2022-01-15] MEDS ORDERED: EPINEPHrine/PF 1 MG/1 ML (1:1,000) AMPULE IM ONE (11:51)
[2022-01-15 11:59] LABS: HEMATOCRIT 29.9 % (32.4-45.2); HEMOGLOBIN 10.2 GM/dL (10.7-15.3); MCH 31.8 pg (25.7-33.7); MCHC 34.1 g/dl (32.0-36.0); MEAN CELL VOLUME 93.4 fl (80-96); MEAN PLT VOLUME 7.4 fl (7.5-11.1); PLATELET COUNT 319 10^3/uL (134-434); RDW 14.3 % (11.6-15.6); WHITE BLOOD COUNT 10.5 K/mm3 (4.0-10.0)
[2022-01-15] MEDS ORDERED: MAGNESIUM SULFATE IVPB ONE ×2 (12:00)
[2022-01-15] MEDS ORDERED: WATER IVPB ONE ×2 (12:00)
[2022-01-15] MEDS ORDERED: MAGNESIUM SULF 50% (8.12 MEQ/2 ML-1 GM VIAL) IVPB ONE (12:00)
[2022-01-15] MEDS ORDERED: DEXTROSE 5% IVPB ONE ×2 (12:00)
[2022-01-15] MEDS: ALBUTEROL SO4 2.5/IPRATROPIUM 0.5 INH SOL 3 ML VIAL.NEB. NEB SCH ×3 (12:00→20:05)
[2022-01-15 12:06] LABS: INR 1.45 (0.83-1.09); PROTHROMBIN TIME (PATIENT) 16.7 SEC (9.7-13.0)
[2022-01-15] MEDS ORDERED: RACEPINEPHRINE IH SOL 2.25% 11.25 MG/0.5 ML VIAL NEB ONE ×2 (12:15→14:01)
[2022-01-15] MEDS ORDERED: DEXAMETHASONE SOD PHOSPHATE 10 MG/1 ML VIAL IVPUSH ONE (12:15)
[2022-01-15 12:19] LABS: CALCIUM 9.5 mg/dL (8.5-10.1)
[2022-01-15 12:20] LABS: ALBUMIN 3.7 g/dl (3.4-5.0); BLOOD UREA NITROGEN 57.1 mg/dL (7-18)
[2022-01-15 12:23] LABS: CREATININE 6.3 mg/dL (0.55-1.3)
[2022-01-15 12:24] LABS: TOT PROT 8.4 g/dl (6.4-8.2)
[2022-01-15] MEDS ORDERED: LEVALBUTEROL HCL 0.63 MG/3 ML VIAL.NEB. IH SCH ×2 (14:00)
[2022-01-15] MEDS ORDERED: ROCURONIUM BROMIDE 50 MG/5 ML VIAL IV ONE (14:13)
[2022-01-15] MEDS ORDERED: PROPOFOL 200 MG/20 ML VIAL IVPUSH ONE (14:15)
[2022-01-15] MEDS ORDERED: RAPID SEQUENCE INTUBATION KIT NR ONE ×2 (14:16→14:18)
[2022-01-15] MEDS: DEXMEDETOMIDINE IN 0.9 % NACL 400 MCG/100 ML VIAL IVPB SCH ×2 (15:11→21:10)
[2022-01-15 15:38] VITALS: BMI 27.1
[2022-01-15] MEDS: WARFARIN NA 10 MG TABLET PO SCH (18:14)
[2022-01-15] MEDS: DEXAMETHASONE SOD PHOSPHATE 10 MG/1 ML VIAL IVPUSH SCH (19:09)
[2022-01-15] MEDS: CHLORHEXIDINE GLUCONATE 4% CLEANSER FOR DECOLONIZATION TP SCH (21:09)
[2022-01-15] MEDS: ROSUVASTATIN CA 10 MG TABLET PO SCH (21:09)
[2022-01-15] MEDS: FENTANYL NS IVPB 500 MCG/100 ML BAG IVPB SCH (21:35)
[2022-01-16] MEDS: METOPROLOL TARTRATE 25 MG TABLET (FP) NGT SCH ×3 (00:35→16:58)
[2022-01-16] MEDS: DEXAMETHASONE SOD PHOSPHATE 10 MG/1 ML VIAL IVPUSH SCH ×3 (01:30→17:07)
[2022-01-16] MEDS: FENTANYL NS IVPB 500 MCG/100 ML BAG IVPB SCH ×2 (03:00→21:31)
[2022-01-16] MEDS: LEVOTHYROXINE NA 25 MCG TABLET (FP) PO SCH (06:30)
[2022-01-16] MEDS: SCOPOLAMINE HYDROBROMIDE 1 PATCH PATCH.TD72 TD SCH (06:30)
[2022-01-16] MEDS: INSULIN SLIDING SCALE (NOVOLOG) 1 VIAL SQ SCH ×4 (06:32→21:32)
[2022-01-16] MEDS: PROPOFOL 1,000,000 MCG/100 ML VIAL IVPB SCH ×3 (06:33→17:38)
[2022-01-16] MEDS: DEXMEDETOMIDINE IN 0.9 % NACL 400 MCG/100 ML VIAL IVPB SCH ×2 (06:33→14:15)
[2022-01-16 07:40] LABS: CHLORIDE 93 mmol/L (98-107); SODIUM 136 mmol/L (136-145)
[2022-01-16 07:45] LABS: CALCIUM 8.5 mg/dL (8.5-10.1)
[2022-01-16 07:46] LABS: ALBUMIN 3.4 g/dl (3.4-5.0); ANION GAP 20 MMOL/L (8-16); CO2 23 mmol/L (21-32); GLUCOSE,RANDOM 249 mg/dL (74-106); MAGNESIUM 2.8 mg/dL (1.8-2.4)
[2022-01-16 07:48] LABS: SGOT/AST 27 U/L (15-37)
[2022-01-16 07:49] LABS: SGPT/ALT 64 U/L (13-61)
[2022-01-16 07:50] LABS: BILIRUBIN,TOTAL 0.5 mg/dL (0.2-1); TOT PROT 7.5 g/dl (6.4-8.2)
[2022-01-16 07:55] LABS: HEMATOCRIT 25.4 % (32.4-45.2); HEMOGLOBIN 8.7 GM/dL (10.7-15.3); MCH 32.1 pg (25.7-33.7); MCHC 34.3 g/dl (32.0-36.0); MEAN CELL VOLUME 93.6 fl (80-96); MEAN PLT VOLUME 7.8 fl (7.5-11.1); PLATELET COUNT 268 10^3/uL (134-434); RBC 2.72 M/mm3 (3.60-5.2); RDW 14.5 % (11.6-15.6); WHITE BLOOD COUNT 6.5 K/mm3 (4.0-10.0)
[2022-01-16] MEDS: ALBUTEROL SO4 2.5/IPRATROPIUM 0.5 INH SOL 3 ML VIAL.NEB. NEB SCH ×4 (08:15→19:50)
[2022-01-16] MEDS: AMINO ACIDS/PROTEIN HYDROLYS 30 ML LIQUID.PKT PO SCH ×2 (08:26→16:58)
[2022-01-16 08:28] LABS: INR 1.35 (0.83-1.09); PROTHROMBIN TIME (PATIENT) 15.6 SEC (9.7-13.0)
[2022-01-16 08:29] LABS: ALK PHOS 173 U/L (45-117); BLOOD UREA NITROGEN 90.7 mg/dL (7-18); CREATININE 7.9 mg/dL (0.55-1.3); PHOSPHOROUS 12.4 mg/dL (2.5-4.9)
[2022-01-16] MEDS ORDERED: cefTRIAXone SODIUM 1 GM VIAL ONE (09:06)
[2022-01-16] MEDS ORDERED: DEXTROSE 5%-WATER - 50 ML IVPB ONE (09:06)
[2022-01-16] MEDS: MUPIROCIN 2% TOPICAL OINTMENT FOR DECOLONIZATION NS SCH ×2 (09:27→21:31)
[2022-01-16] MEDS: VERAPAMIL HCL 180 MG E.R. TABLET PO SCH (09:28)
[2022-01-16] MEDS: PANTOPRAZOLE SODIUM 40 MG VIAL IVPUSH SCH (09:30)
[2022-01-16] MEDS: CEFTRIAXONE 1 GM in DEXTROSE 5%-WATER - 50 ML IVPB SCH (09:33)
[2022-01-16] MEDS: ALLOPURINOL 100 MG TABLET (FP) PO SCH (09:33)
[2022-01-16] MEDS ORDERED: EPOETIN ALFA-EPBX 10,000 UNIT/ML VIAL IVPUSH ONE (13:15)
[2022-01-16] MEDS ORDERED: MIDAZOLAM HCL 2 MG/2 ML SINGLE DOSE VIAL IVPUSH ONE ×2 (16:17→19:33)
[2022-01-16] MEDS ORDERED: MIDAZOLAM HCL 2 MG/2 ML SINGLE DOSE VIAL ONE (16:19)
[2022-01-16] MEDS: SEVELAMER CARBONATE 0.8 GM POWDER PACKET GT SCH ×2 (16:57→16:59)
[2022-01-16] MEDS: WARFARIN NA 10 MG TABLET PO SCH (17:05)
[2022-01-16] MEDS: ROSUVASTATIN CA 10 MG TABLET PO SCH (21:31)
[2022-01-16] MEDS: CHLORHEXIDINE GLUCONATE 4% CLEANSER FOR DECOLONIZATION TP SCH (21:32)
[2022-01-17] MEDS: DEXAMETHASONE SOD PHOSPHATE 10 MG/1 ML VIAL IVPUSH SCH ×3 (01:17→17:52)
[2022-01-17] MEDS: METOPROLOL TARTRATE 25 MG TABLET (FP) NGT SCH ×3 (01:18→17:52)
[2022-01-17] MEDS: PROPOFOL 1,000,000 MCG/100 ML VIAL IVPB SCH ×5 (03:14→16:13)
[2022-01-17] MEDS: FENTANYL NS IVPB 500 MCG/100 ML BAG IVPB SCH ×5 (03:14→21:45)
[2022-01-17] MEDS: LEVOTHYROXINE NA 25 MCG TABLET (FP) PO SCH (06:01)
[2022-01-17] MEDS: INSULIN SLIDING SCALE (NOVOLOG) 1 VIAL SQ SCH ×4 (06:01→22:07)
[2022-01-17 06:47] LABS: HEMATOCRIT 25.7 % (32.4-45.2); HEMOGLOBIN 8.6 GM/dL (10.7-15.3); MCH 31.5 pg (25.7-33.7); MCHC 33.4 g/dl (32.0-36.0); MEAN CELL VOLUME 94.3 fl (80-96); MEAN PLT VOLUME 7.5 fl (7.5-11.1); PLATELET COUNT 271 10^3/uL (134-434); RBC 2.72 M/mm3 (3.60-5.2); RDW 14.6 % (11.6-15.6); WHITE BLOOD COUNT 8.1 K/mm3 (4.0-10.0)
[2022-01-17 06:57] LABS: INR 1.51 (0.83-1.09); PROTHROMBIN TIME (PATIENT) 17.4 SEC (9.7-13.0)
[2022-01-17 07:11] LABS: CALCIUM 8.3 mg/dL (8.5-10.1)
[2022-01-17 07:12] LABS: ALBUMIN 3.4 g/dl (3.4-5.0); MAGNESIUM 2.5 mg/dL (1.8-2.4)
[2022-01-17 07:15] LABS: CREATININE 5.8 mg/dL (0.55-1.3); PHOSPHOROUS 8.7 mg/dL (2.5-4.9)
[2022-01-17 07:17] LABS: BILIRUBIN,TOTAL 0.6 mg/dL (0.2-1); TOT PROT 7.2 g/dl (6.4-8.2)
[2022-01-17] MEDS: ALBUTEROL SO4 2.5/IPRATROPIUM 0.5 INH SOL 3 ML VIAL.NEB. NEB SCH ×4 (07:40→20:05)
[2022-01-17] MEDS ORDERED: DEXTROSE 5%-WATER - 50 ML IVPB ONE (08:03)
[2022-01-17] MEDS ORDERED: cefTRIAXone SODIUM 1 GM VIAL ONE (08:03)
[2022-01-17] MEDS: SEVELAMER CARBONATE 0.8 GM POWDER PACKET GT SCH ×3 (08:15→17:54)
[2022-01-17] MEDS: AMINO ACIDS/PROTEIN HYDROLYS 30 ML LIQUID.PKT PO SCH ×2 (08:25→17:52)
[2022-01-17] MEDS ORDERED: SODIUM CHLORIDE 250 ML IV PRN (09:28)
[2022-01-17] MEDS: PANTOPRAZOLE SODIUM 40 MG VIAL IVPUSH SCH (09:51)
[2022-01-17] MEDS: CEFTRIAXONE 1 GM in DEXTROSE 5%-WATER - 50 ML IVPB SCH (09:51)
[2022-01-17] MEDS: ALLOPURINOL 100 MG TABLET (FP) PO SCH (09:51)
[2022-01-17] MEDS: MUPIROCIN 2% TOPICAL OINTMENT FOR DECOLONIZATION NS SCH ×2 (09:52→21:58)
[2022-01-17] MEDS: VERAPAMIL HCL 180 MG E.R. TABLET PO SCH ×2 (09:52→10:46)
[2022-01-17] MEDS ORDERED: MIDAZOLAM HCL 2 MG/2 ML SINGLE DOSE VIAL IVPUSH ONE (11:32)
[2022-01-17] MEDS: DEXMEDETOMIDINE IN 0.9 % NACL 400 MCG/100 ML VIAL IVPB SCH ×3 (12:17→22:11)
[2022-01-17] MEDS: VERAPAMIL HCL 40 MG TABLET PO SCH ×2 (13:57→21:57)
[2022-01-17] MEDS ORDERED: ACETAMINOPHEN 160 MG/5 ML *Children Solution PO PRN (14:09)
[2022-01-17] MEDS ORDERED: ACETAMINOPHEN 1000 MG/100 ML BAG IVPB ONE (14:09)
[2022-01-17] MEDS ORDERED: ACETAMINOPHEN 650 MG/20.3 ML ORAL SOLUTION (CUPS) PO PRN (14:43)
[2022-01-17] MEDS: WARFARIN NA 10 MG TABLET PO SCH (17:57)
[2022-01-17] MEDS: ROSUVASTATIN CA 10 MG TABLET PO SCH (21:56)
[2022-01-17] MEDS: CHLORHEXIDINE GLUCONATE 4% CLEANSER FOR DECOLONIZATION TP SCH (21:58)
[2022-01-17] MEDS: MIDAZOLAM HCL 2 MG/2 ML SINGLE DOSE VIAL IVPUSH PRN (22:11)
[2022-01-18] MEDS: METOPROLOL TARTRATE 25 MG TABLET (FP) NGT SCH ×3 (02:01→16:47)
[2022-01-18] MEDS: DEXAMETHASONE SOD PHOSPHATE 10 MG/1 ML VIAL IVPUSH SCH ×3 (02:02→17:12)
[2022-01-18] MEDS: FENTANYL NS IVPB 500 MCG/100 ML BAG IVPB SCH ×4 (02:08→21:30)
[2022-01-18] MEDS: MIDAZOLAM HCL 2 MG/2 ML SINGLE DOSE VIAL IVPUSH PRN (05:12)
[2022-01-18] MEDS: PROPOFOL 1,000,000 MCG/100 ML VIAL IVPB SCH ×5 (05:30→20:52)
[2022-01-18] MEDS: LEVOTHYROXINE NA 25 MCG TABLET (FP) PO SCH (06:01)
[2022-01-18] MEDS: VERAPAMIL HCL 40 MG TABLET PO SCH ×3 (06:01→22:18)
[2022-01-18] MEDS: INSULIN SLIDING SCALE (NOVOLOG) 1 VIAL SQ SCH ×4 (06:01→22:10)
[2022-01-18 07:25] LABS: HEMATOCRIT 24.1 % (32.4-45.2); HEMOGLOBIN 8.2 GM/dL (10.7-15.3); MCH 32.3 pg (25.7-33.7); MEAN CELL VOLUME 95.1 fl (80-96); MEAN PLT VOLUME 7.8 fl (7.5-11.1); PLATELET COUNT 295 10^3/uL (134-434); RBC 2.54 M/mm3 (3.60-5.2); RDW 14.5 % (11.6-15.6); WHITE BLOOD COUNT 7.6 K/mm3 (4.0-10.0)
[2022-01-18 07:30] LABS: INR 1.28 (0.83-1.09); PROTHROMBIN TIME (PATIENT) 14.7 SEC (9.7-13.0)
[2022-01-18] MEDS ORDERED: EPOETIN ALFA-EPBX 10,000 UNIT/ML VIAL IVPUSH ONE (08:00)
[2022-01-18] MEDS: DEXMEDETOMIDINE IN 0.9 % NACL 400 MCG/100 ML VIAL IVPB SCH ×3 (08:00→14:15)
[2022-01-18] MEDS: SEVELAMER CARBONATE 0.8 GM POWDER PACKET GT SCH (08:36)
[2022-01-18] MEDS: AMINO ACIDS/PROTEIN HYDROLYS 30 ML LIQUID.PKT PO SCH ×2 (08:36→17:11)
[2022-01-18] MEDS: ALBUTEROL SO4 2.5/IPRATROPIUM 0.5 INH SOL 3 ML VIAL.NEB. NEB SCH ×4 (08:40→20:08)
[2022-01-18] MEDS ORDERED: DEXTROSE 5%-WATER - 50 ML IVPB ONE (08:41)
[2022-01-18] MEDS ORDERED: cefTRIAXone SODIUM 1 GM VIAL ONE (08:41)
[2022-01-18 09:07] LABS: ALBUMIN 3.3 g/dl (3.4-5.0); ALK PHOS 130 U/L (45-117); ANION GAP 22 MMOL/L (8-16); BILIRUBIN,TOTAL 0.4 mg/dL (0.2-1); BLOOD UREA NITROGEN 119.4 mg/dL (7-18); CALCIUM 7.9 mg/dL (8.5-10.1); CHLORIDE 97 mmol/L (98-107); CO2 19 mmol/L (21-32); CREATININE 8.2 mg/dL (0.55-1.3); GLUCOSE,RANDOM 268 mg/dL (74-106); PHOSPHOROUS > 9.0 mg/dL (2.5-4.9); SGOT/AST 39 U/L (15-37); SGPT/ALT 61 U/L (13-61); SODIUM 138 mmol/L (136-145); TOT PROT 6.9 g/dl (6.4-8.2)
[2022-01-18] MEDS: MUPIROCIN 2% TOPICAL OINTMENT FOR DECOLONIZATION NS SCH ×2 (10:55→22:03)
[2022-01-18] MEDS: PANTOPRAZOLE SODIUM 40 MG VIAL IVPUSH SCH (10:55)
[2022-01-18] MEDS: CEFTRIAXONE 1 GM in DEXTROSE 5%-WATER - 50 ML IVPB SCH (10:56)
[2022-01-18] MEDS: ALLOPURINOL 100 MG TABLET (FP) PO SCH (10:56)
[2022-01-18] MEDS: CALCIUM ACETATE 667 MG CAPSULE (FP) PO SCH ×2 (11:05→17:11)
[2022-01-18] MEDS: WARFARIN NA 10 MG TABLET PO SCH (17:21)
[2022-01-18] MEDS ORDERED: WARFARIN NA 5 MG TABLET PO ONE (18:00)
[2022-01-18] MEDS: CHLORHEXIDINE GLUCONATE 4% CLEANSER FOR DECOLONIZATION TP SCH (22:03)
[2022-01-18] MEDS: ROSUVASTATIN CA 10 MG TABLET PO SCH (22:03)
[2022-01-19] MEDS: FENTANYL NS IVPB 500 MCG/100 ML BAG IVPB SCH ×5 (00:45→21:29)
[2022-01-19] MEDS: DEXAMETHASONE SOD PHOSPHATE 10 MG/1 ML VIAL IVPUSH SCH ×3 (01:23→17:07)
[2022-01-19] MEDS: METOPROLOL TARTRATE 25 MG TABLET (FP) NGT SCH ×3 (01:31→16:57)
[2022-01-19] MEDS: PROPOFOL 1,000,000 MCG/100 ML VIAL IVPB SCH ×6 (02:30→21:08)
[2022-01-19] MEDS: SCOPOLAMINE HYDROBROMIDE 1 PATCH PATCH.TD72 TD SCH (05:54)
[2022-01-19] MEDS: VERAPAMIL HCL 40 MG TABLET PO SCH ×3 (06:04→21:27)
[2022-01-19] MEDS: LEVOTHYROXINE NA 25 MCG TABLET (FP) PO SCH (06:10)
[2022-01-19] MEDS: INSULIN SLIDING SCALE (NOVOLOG) 1 VIAL SQ SCH ×4 (06:26→21:40)
[2022-01-19 07:47] LABS: HEMATOCRIT 25.6 % (32.4-45.2); HEMOGLOBIN 8.5 GM/dL (10.7-15.3); MCH 31.4 pg (25.7-33.7); MCHC 33.1 g/dl (32.0-36.0); MEAN CELL VOLUME 94.7 fl (80-96); MEAN PLT VOLUME 7.9 fl (7.5-11.1); PLATELET COUNT 251 10^3/uL (134-434); RDW 14.8 % (11.6-15.6); WHITE BLOOD COUNT 8.1 K/mm3 (4.0-10.0)
[2022-01-19 07:48] LABS: INR 1.31 (0.83-1.09); PROTHROMBIN TIME (PATIENT) 15.1 SEC (9.7-13.0)
[2022-01-19 07:53] LABS: ALBUMIN 3.2 g/dl (3.4-5.0); CALCIUM 8.4 mg/dL (8.5-10.1)
[2022-01-19 07:54] LABS: MAGNESIUM 2.3 mg/dL (1.8-2.4)
[2022-01-19 07:56] LABS: CREATININE 5.5 mg/dL (0.55-1.3)
[2022-01-19 07:57] LABS: PHOSPHOROUS 8.5 mg/dL (2.5-4.9)
[2022-01-19 07:58] LABS: BILIRUBIN,TOTAL 0.6 mg/dL (0.2-1); TOT PROT 6.7 g/dl (6.4-8.2)
[2022-01-19] MEDS: AMINO ACIDS/PROTEIN HYDROLYS 30 ML LIQUID.PKT PO SCH ×2 (08:00→16:42)
[2022-01-19] MEDS: CALCIUM ACETATE 667 MG CAPSULE (FP) PO SCH ×3 (08:00→16:43)
[2022-01-19 08:04] LABS: BLOOD UREA NITROGEN 83.9 mg/dL (7-18)
[2022-01-19] MEDS ORDERED: cefTRIAXone SODIUM 1 GM VIAL ONE (08:05)
[2022-01-19] MEDS ORDERED: DEXTROSE 5%-WATER - 50 ML IVPB ONE (08:05)
[2022-01-19] MEDS: ALBUTEROL SO4 2.5/IPRATROPIUM 0.5 INH SOL 3 ML VIAL.NEB. NEB SCH ×4 (09:48→20:25)
[2022-01-19] MEDS: ALLOPURINOL 100 MG TABLET (FP) PO SCH (10:00)
[2022-01-19] MEDS: PANTOPRAZOLE SODIUM 40 MG VIAL IVPUSH SCH (10:40)
[2022-01-19] MEDS: CEFTRIAXONE 1 GM in DEXTROSE 5%-WATER - 50 ML IVPB SCH (10:41)
[2022-01-19] MEDS: MUPIROCIN 2% TOPICAL OINTMENT FOR DECOLONIZATION NS SCH (10:44)
[2022-01-19] MEDS: DEXMEDETOMIDINE IN 0.9 % NACL 400 MCG/100 ML VIAL IVPB SCH ×2 (13:04→14:15)
[2022-01-19] MEDS ORDERED: SODIUM CHLORIDE 250 ML IV PRN (16:00)
[2022-01-19] MEDS: ALBUMIN HUMAN 25% 12.5 GM/50 ML VIAL IV SCH ×4 (16:00→17:30)
[2022-01-19] MEDS: WARFARIN NA 10 MG TABLET PO SCH (17:06)
[2022-01-19] MEDS: ROSUVASTATIN CA 10 MG TABLET PO SCH (21:24)
[2022-01-19] MEDS: CHLORHEXIDINE GLUCONATE 4% CLEANSER FOR DECOLONIZATION TP SCH (21:25)
[2022-01-20] MEDS: DEXAMETHASONE SOD PHOSPHATE 10 MG/1 ML VIAL IVPUSH SCH ×3 (01:09→18:17)
[2022-01-20] MEDS: METOPROLOL TARTRATE 25 MG TABLET (FP) NGT SCH ×3 (01:10→18:15)
[2022-01-20] MEDS: PROPOFOL 1,000,000 MCG/100 ML VIAL IVPB SCH ×4 (03:00→15:08)
[2022-01-20] MEDS: VERAPAMIL HCL 40 MG TABLET PO SCH ×3 (05:58→21:53)
[2022-01-20] MEDS: LEVOTHYROXINE NA 25 MCG TABLET (FP) PO SCH (06:15)
[2022-01-20] MEDS: DEXMEDETOMIDINE IN 0.9 % NACL 400 MCG/100 ML VIAL IVPB SCH ×4 (06:16→21:52)
[2022-01-20] MEDS: INSULIN SLIDING SCALE (NOVOLOG) 1 VIAL SQ SCH ×4 (06:28→21:54)
[2022-01-20 07:23] LABS: HEMATOCRIT 25.1 % (32.4-45.2); HEMOGLOBIN 8.4 GM/dL (10.7-15.3); MCH 31.7 pg (25.7-33.7); MCHC 33.4 g/dl (32.0-36.0); MEAN CELL VOLUME 94.7 fl (80-96); MEAN PLT VOLUME 8.2 fl (7.5-11.1); PLATELET COUNT 237 10^3/uL (134-434); RBC 2.65 M/mm3 (3.60-5.2); RDW 14.8 % (11.6-15.6)
[2022-01-20 07:28] LABS: INR 1.25 (0.83-1.09); PROTHROMBIN TIME (PATIENT) 14.4 SEC (9.7-13.0)
[2022-01-20 07:49] LABS: CHLORIDE 92 mmol/L (98-107); SODIUM 131 mmol/L (136-145)
[2022-01-20 07:59] LABS: CALCIUM 8.3 mg/dL (8.5-10.1)
[2022-01-20 08:00] LABS: ALBUMIN 3.8 g/dl (3.4-5.0); ANION GAP 20 MMOL/L (8-16); CO2 20 mmol/L (21-32); GLUCOSE,RANDOM 316 mg/dL (74-106); MAGNESIUM 2.7 mg/dL (1.8-2.4)
[2022-01-20 08:03] LABS: SGPT/ALT 43 U/L (13-61)
[2022-01-20 08:04] LABS: SGOT/AST 14 U/L (15-37); TOT PROT 6.9 g/dl (6.4-8.2)
[2022-01-20 08:05] LABS: BILIRUBIN,TOTAL 0.4 mg/dL (0.2-1)
[2022-01-20 08:06] LABS: ALK PHOS 96 U/L (45-117)
[2022-01-20 08:18] LABS: BLOOD UREA NITROGEN 124.5 mg/dL (7-18); CREATININE 7.4 mg/dL (0.55-1.3)
[2022-01-20] MEDS: FENTANYL NS IVPB 500 MCG/100 ML BAG IVPB SCH ×4 (08:30→21:52)
[2022-01-20] MEDS: ALBUTEROL SO4 2.5/IPRATROPIUM 0.5 INH SOL 3 ML VIAL.NEB. NEB SCH ×4 (08:31→20:05)
[2022-01-20] MEDS: AMINO ACIDS/PROTEIN HYDROLYS 30 ML LIQUID.PKT PO SCH ×2 (09:00→18:16)
[2022-01-20] MEDS: CALCIUM ACETATE 667 MG CAPSULE (FP) PO SCH (09:00)
[2022-01-20 09:03] LABS: PHOSPHOROUS 11.7 mg/dL (2.5-4.9)
[2022-01-20] MEDS: ALLOPURINOL 100 MG TABLET (FP) PO SCH (09:39)
[2022-01-20] MEDS: PANTOPRAZOLE SODIUM 40 MG VIAL IVPUSH SCH (09:40)
[2022-01-20] MEDS ORDERED: SODIUM CHLORIDE 250 ML IV PRN (11:18)
[2022-01-20] MEDS ORDERED: MIDAZOLAM HCL 2 MG/2 ML SINGLE DOSE VIAL IVPUSH ONE (12:09)
[2022-01-20] MEDS: SEVELAMER CARBONATE 0.8 GM POWDER PACKET GT SCH ×2 (12:38→18:16)
[2022-01-20] MEDS: WARFARIN NA 10 MG TABLET PO SCH (18:16)
[2022-01-20] MEDS: SODIUM CHLORIDE 1,000 ML IV SCH (18:19)
[2022-01-20] MEDS: CHLORHEXIDINE GLUCONATE 4% CLEANSER FOR DECOLONIZATION TP SCH (21:53)
[2022-01-20] MEDS: ROSUVASTATIN CA 10 MG TABLET PO SCH (21:53)
[2022-01-20] MEDS: INSULIN (LEVEMIR) 100 UNITS/ML UNITS SQ SCH (21:54)
[2022-01-21] MEDS: DEXAMETHASONE SOD PHOSPHATE 10 MG/1 ML VIAL IVPUSH SCH ×3 (01:48→21:44)
[2022-01-21] MEDS: METOPROLOL TARTRATE 25 MG TABLET (FP) NGT SCH ×4 (01:48→17:38)
[2022-01-21] MEDS: DEXMEDETOMIDINE IN 0.9 % NACL 400 MCG/100 ML VIAL IVPB SCH ×3 (04:10→14:41)
[2022-01-21] MEDS: FENTANYL NS IVPB 500 MCG/100 ML BAG IVPB SCH (05:00)
[2022-01-21] MEDS: VERAPAMIL HCL 40 MG TABLET PO SCH ×3 (06:21→21:44)
[2022-01-21] MEDS: LEVOTHYROXINE NA 25 MCG TABLET (FP) PO SCH (06:21)
[2022-01-21] MEDS: INSULIN SLIDING SCALE (NOVOLOG) 1 VIAL SQ SCH ×4 (06:21→21:48)
[2022-01-21 07:34] LABS: HEMATOCRIT 25.4 % (32.4-45.2); HEMOGLOBIN 8.6 GM/dL (10.7-15.3); MCH 32.4 pg (25.7-33.7); MCHC 33.9 g/dl (32.0-36.0); MEAN CELL VOLUME 95.6 fl (80-96); MEAN PLT VOLUME 8.1 fl (7.5-11.1); PLATELET COUNT 226 10^3/uL (134-434); RBC 2.66 M/mm3 (3.60-5.2); RDW 14.7 % (11.6-15.6); WHITE BLOOD COUNT 8.8 K/mm3 (4.0-10.0)
[2022-01-21 07:39] LABS: INR 1.22 (0.83-1.09); PROTHROMBIN TIME (PATIENT) 14.1 SEC (9.7-13.0)
[2022-01-21] MEDS: ALBUTEROL SO4 2.5/IPRATROPIUM 0.5 INH SOL 3 ML VIAL.NEB. NEB SCH ×6 (07:45→21:05)
[2022-01-21 07:47] LABS: CHLORIDE 92 mmol/L (98-107); SODIUM 129 mmol/L (136-145)
[2022-01-21 07:50] LABS: CALCIUM 7.6 mg/dL (8.5-10.1)
[2022-01-21 07:51] LABS: ALBUMIN 3.4 g/dl (3.4-5.0); ANION GAP 21 MMOL/L (8-16); CO2 16 mmol/L (21-32); GLUCOSE,RANDOM 326 mg/dL (74-106); MAGNESIUM 2.8 mg/dL (1.8-2.4)
[2022-01-21 07:53] LABS: SGPT/ALT 38 U/L (13-61)
[2022-01-21 07:54] LABS: SGOT/AST 12 U/L (15-37)
[2022-01-21 07:55] LABS: BILIRUBIN,TOTAL 0.4 mg/dL (0.2-1); TOT PROT 6.4 g/dl (6.4-8.2)
[2022-01-21 07:56] LABS: ALK PHOS 85 U/L (45-117)
[2022-01-21] MEDS: PROPOFOL 1,000,000 MCG/100 ML VIAL IVPB SCH ×2 (08:00→14:41)
[2022-01-21 08:16] LABS: BLOOD UREA NITROGEN 147.3 mg/dL (7-18); CREATININE 9.1 mg/dL (0.55-1.3)
[2022-01-21 08:35] LABS: PHOSPHOROUS 14.5 mg/dL (2.5-4.9)
[2022-01-21] MEDS ORDERED: ACETAMINOPHEN 650 MG/20.3 ML ORAL SOLUTION (CUPS) NGT PRN (08:39)
[2022-01-21] MEDS: AMINO ACIDS/PROTEIN HYDROLYS 30 ML LIQUID.PKT PO SCH ×2 (08:55→17:39)
[2022-01-21] MEDS ORDERED: EPOETIN ALFA-EPBX 10,000 UNIT/ML VIAL IVPUSH ONE (09:00)
[2022-01-21] MEDS: SEVELAMER CARBONATE 0.8 GM POWDER PACKET GT SCH (09:00)
[2022-01-21] MEDS ORDERED: SEVELAMER CARBONATE 0.8 GM POWDER PACKET GT SCH (09:03)
[2022-01-21] MEDS: ALLOPURINOL 100 MG TABLET (FP) PO SCH (10:53)
[2022-01-21] MEDS: PANTOPRAZOLE SODIUM 40 MG VIAL IVPUSH SCH (10:53)
[2022-01-21] MEDS: CALCIUM ACETATE 667 MG CAPSULE (FP) PO SCH ×2 (11:07→17:38)
[2022-01-21] MEDS ORDERED: RACEPINEPHRINE IH SOL 2.25% 11.25 MG/0.5 ML VIAL NEB ONE (12:30)
[2022-01-21] MEDS: WARFARIN NA 5 MG TABLET PO SCH (17:39)
[2022-01-21] MEDS: SODIUM CHLORIDE 1,000 ML IV SCH ×2 (17:56→22:09)
[2022-01-21] MEDS ORDERED: WARFARIN NA 5 MG TABLET PO ONE (18:00)
[2022-01-21] MEDS: ROSUVASTATIN CA 10 MG TABLET PO SCH (21:44)
[2022-01-21] MEDS: CHLORHEXIDINE GLUCONATE 4% CLEANSER FOR DECOLONIZATION TP SCH (21:44)
[2022-01-21] MEDS: INSULIN (LEVEMIR) 100 UNITS/ML UNITS SQ SCH (21:48)
[2022-01-22] MEDS: METOPROLOL TARTRATE 25 MG TABLET (FP) NGT SCH ×3 (02:15→17:35)
[2022-01-22] MEDS: VERAPAMIL HCL 40 MG TABLET PO SCH ×2 (05:59→14:41)
[2022-01-22] MEDS: INSULIN SLIDING SCALE (NOVOLOG) 1 VIAL SQ SCH ×4 (05:59→21:52)
[2022-01-22] MEDS: LEVOTHYROXINE NA 25 MCG TABLET (FP) PO SCH (06:31)
[2022-01-22] MEDS: ALBUTEROL SO4 2.5/IPRATROPIUM 0.5 INH SOL 3 ML VIAL.NEB. NEB SCH ×4 (08:35→19:48)
[2022-01-22] MEDS: CALCIUM ACETATE 667 MG CAPSULE (FP) PO SCH ×3 (09:00→17:33)
[2022-01-22] MEDS: AMINO ACIDS/PROTEIN HYDROLYS 30 ML LIQUID.PKT PO SCH ×2 (09:00→16:55)
[2022-01-22] MEDS: ALLOPURINOL 100 MG TABLET (FP) PO SCH (09:21)
[2022-01-22] MEDS: DEXAMETHASONE SOD PHOSPHATE 10 MG/1 ML VIAL IVPUSH SCH ×2 (09:21→21:49)
[2022-01-22] MEDS: PANTOPRAZOLE SODIUM 40 MG VIAL IVPUSH SCH (09:21)
[2022-01-22 11:42] LABS: HEMATOCRIT 26.8 % (32.4-45.2); HEMOGLOBIN 8.7 GM/dL (10.7-15.3); MCH 30.5 pg (25.7-33.7); MCHC 32.5 g/dl (32.0-36.0); MEAN CELL VOLUME 93.8 fl (80-96); MEAN PLT VOLUME 7.8 fl (7.5-11.1); PLATELET COUNT 171 10^3/uL (134-434); RBC 2.86 M/mm3 (3.60-5.2); RDW 15.4 % (11.6-15.6); WHITE BLOOD COUNT 11.2 K/mm3 (4.0-10.0)
[2022-01-22 12:10] LABS: CALCIUM 7.8 mg/dL (8.5-10.1)
[2022-01-22 12:11] LABS: ALBUMIN 3.1 g/dl (3.4-5.0)
[2022-01-22 12:14] LABS: CREATININE 5.5 mg/dL (0.55-1.3); PHOSPHOROUS 7.7 mg/dL (2.5-4.9)
[2022-01-22 12:15] LABS: BILIRUBIN,TOTAL 0.4 mg/dL (0.2-1); TOT PROT 6.1 g/dl (6.4-8.2)
[2022-01-22 12:18] LABS: BLOOD UREA NITROGEN 91.8 mg/dL (7-18)
[2022-01-22] MEDS: WARFARIN NA 5 MG TABLET PO SCH (17:35)
[2022-01-22] MEDS: MELATONIN 1 MG TABLET PO PRN ×2 (18:22→21:47)
[2022-01-22] MEDS ORDERED: SODIUM CHLORIDE 250 ML IV PRN (18:33)
[2022-01-22] MEDS ORDERED: AMPICILLIN NA/SULBACTAM NA 3 GM in SODIUM CHLORIDE 100 ML IVPB SCH (20:00)
[2022-01-22 21:06] LABS: INR 1.23 (0.83-1.09); PROTHROMBIN TIME (PATIENT) 14.2 SEC (9.7-13.0)
[2022-01-22] MEDS ORDERED: METOPROLOL TARTRATE 5 MG/5 ML VIAL IVPB PRN (21:42)
[2022-01-22] MEDS ORDERED: ALBUTEROL SO4 2.5/IPRATROPIUM 0.5 INH SOL 3 ML VIAL.NEB. NEB PRN ×2 (21:42→22:24)
[2022-01-22] MEDS: SODIUM CHLORIDE 1,000 ML IV SCH (21:47)
[2022-01-22] MEDS: ACETAMINOPHEN 650 MG/20.3 ML ORAL SOLUTION (CUPS) NGT PRN (21:48)
[2022-01-22] MEDS: INSULIN (LEVEMIR) 100 UNITS/ML UNITS SQ SCH (21:50)
[2022-01-22] MEDS ORDERED: MELATONIN 1 MG TABLET NGT PRN (21:52)
[2022-01-22] MEDS ORDERED: CHLORHEXIDINE GLUCONATE 4% CLEANSER FOR DECOLONIZATION TP SCH (22:00)
[2022-01-22] MEDS ORDERED: ROSUVASTATIN CA 10 MG TABLET PO SCH (22:00)
[2022-01-22] MEDS ORDERED: VERAPAMIL HCL 40 MG TABLET PO SCH (22:00)
[2022-01-23] MEDS: SODIUM CHLORIDE 1,000 ML IV SCH ×2 (04:28→08:21)
[2022-01-23] MEDS ORDERED: LABETALOL HCL 200 MG TABLET (FP) PO ONE (06:04)
[2022-01-23] MEDS: ACETAMINOPHEN 650 MG/20.3 ML ORAL SOLUTION (CUPS) NGT PRN (06:11)
[2022-01-23] MEDS: LEVOTHYROXINE NA 25 MCG TABLET (FP) NGT SCH (06:12)
[2022-01-23] MEDS: VERAPAMIL HCL 40 MG TABLET NGT SCH ×2 (06:13→16:31)
[2022-01-23] MEDS: INSULIN SLIDING SCALE (NOVOLOG) 1 VIAL SQ SCH ×4 (06:13→22:36)
[2022-01-23 08:32] LABS: HEMATOCRIT 24.6 % (32.4-45.2); HEMOGLOBIN 8.1 GM/dL (10.7-15.3); MCH 30.9 pg (25.7-33.7); MCHC 32.7 g/dl (32.0-36.0); MEAN CELL VOLUME 94.3 fl (80-96); MEAN PLT VOLUME 8.7 fl (7.5-11.1); PLATELET COUNT 170 10^3/uL (134-434); RBC 2.61 M/mm3 (3.60-5.2); RDW 15.5 % (11.6-15.6); WHITE BLOOD COUNT 11.1 K/mm3 (4.0-10.0)
[2022-01-23 08:34] LABS: INR 1.7 (0.83-1.09); PROTHROMBIN TIME (PATIENT) 19.6 SEC (9.7-13.0)
[2022-01-23 08:46] LABS: CHLORIDE 102 mmol/L (98-107); SODIUM 140 mmol/L (136-145)
[2022-01-23 08:50] LABS: ALBUMIN 2.9 g/dl (3.4-5.0); CALCIUM 7.6 mg/dL (8.5-10.1)
[2022-01-23 08:51] LABS: ANION GAP 19 MMOL/L (8-16); CO2 19 mmol/L (21-32); GLUCOSE,RANDOM 205 mg/dL (74-106); MAGNESIUM 2.3 mg/dL (1.8-2.4)
[2022-01-23 08:53] LABS: CREATININE 7.1 mg/dL (0.55-1.3); SGPT/ALT 57 U/L (13-61)
[2022-01-23 08:54] LABS: SGOT/AST 30 U/L (15-37)
[2022-01-23 08:55] LABS: BILIRUBIN,TOTAL 0.4 mg/dL (0.2-1); TOT PROT 5.9 g/dl (6.4-8.2)
[2022-01-23 08:56] LABS: ALK PHOS 77 U/L (45-117)
[2022-01-23] MEDS ORDERED: KCL 10 MEQ IVPB 10 MEQ/100 ML INFUS.BAG IVPB SCH ×2 (09:15→13:45)
[2022-01-23 10:17] LABS: BLOOD UREA NITROGEN 119.8 mg/dL (7-18)
[2022-01-23] MEDS ORDERED: EPOETIN ALFA-EPBX 10,000 UNIT/ML VIAL IVPUSH ONE (11:00)
[2022-01-23 12:08] LABS: SARS-CoV-2 NAA Not Detected (Not Detected)
[2022-01-23 13:04] LABS: CHLORIDE 103 mmol/L (98-107); SODIUM 141 mmol/L (136-145)
[2022-01-23 13:07] LABS: CALCIUM 7.8 mg/dL (8.5-10.1); CO2 28 mmol/L (21-32); GLUCOSE,RANDOM 162 mg/dL (74-106)
[2022-01-23 13:10] LABS: CREATININE 2.5 mg/dL (0.55-1.3)
[2022-01-23 13:12] LABS: ANION GAP 10 MMOL/L (8-16); BLOOD UREA NITROGEN 40.1 mg/dL (7-18)
[2022-01-23] MEDS ORDERED: DEXAMETHASONE SOD PHOSPHATE 10 MG/1 ML VIAL IVPUSH SCH (13:35)
[2022-01-23] MEDS ORDERED: POTASSIUM CHLORIDE TABS 20 MEQ TABLET.ER (FP) PO ONE ×3 (13:49→17:55)
[2022-01-23] MEDS: DEXAMETHASONE SOD PHOSPHATE 10 MG/1 ML VIAL IVPUSH SCH (15:48)
[2022-01-23] MEDS: AMINO ACIDS/PROTEIN HYDROLYS 30 ML LIQUID.PKT NGT SCH ×2 (16:03→17:10)
[2022-01-23] MEDS: CALCIUM ACETATE 667 MG CAPSULE (FP) NGT SCH ×3 (16:03→17:11)
[2022-01-23] MEDS: PANTOPRAZOLE SODIUM 40 MG VIAL IVPUSH SCH (16:04)
[2022-01-23] MEDS: AMPICILLIN NA/SULBACTAM NA 3 GM in SODIUM CHLORIDE 100 ML IVPB SCH (16:04)
[2022-01-23] MEDS: ALLOPURINOL 100 MG TABLET (FP) NGT SCH (16:05)
[2022-01-23] MEDS ORDERED: MELATONIN 1 MG TABLET NGT PRN (17:00)
[2022-01-23] MEDS: hydrALAZINE HCL 10 MG TABLET NGT SCH ×2 (17:11→22:28)
[2022-01-23 17:12] LABS: CHLORIDE 104 mmol/L (98-107); SODIUM 143 mmol/L (136-145)
[2022-01-23 17:13] LABS: CALCIUM 7.7 mg/dL (8.5-10.1)
[2022-01-23 17:14] LABS: CO2 30 mmol/L (21-32); GLUCOSE,RANDOM 150 mg/dL (74-106)
[2022-01-23 17:17] LABS: CREATININE 2.7 mg/dL (0.55-1.3)
[2022-01-23 17:19] LABS: ANION GAP 9 MMOL/L (8-16)
[2022-01-23] MEDS ORDERED: WARFARIN NA 5 MG TABLET NGT SCH (18:00)
[2022-01-23] MEDS ORDERED: ACETAMINOPHEN 1000 MG/100 ML BAG IVPB ONE (18:01)
[2022-01-23] MEDS ORDERED: ROSUVASTATIN CA 10 MG TABLET NGT SCH (22:00)
[2022-01-23] MEDS: INSULIN (LEVEMIR) 100 UNITS/ML UNITS SQ SCH (22:38)
[2022-01-24] MEDS: VERAPAMIL HCL 40 MG TABLET NGT SCH ×4 (00:47→22:59)
[2022-01-24] MEDS: METOPROLOL TARTRATE 25 MG TABLET (FP) NGT SCH ×4 (00:48→22:59)
[2022-01-24] MEDS: hydrALAZINE HCL 10 MG TABLET NGT SCH ×3 (07:00→22:59)
[2022-01-24] MEDS: INSULIN SLIDING SCALE (NOVOLOG) 1 VIAL SQ SCH ×4 (07:00→22:58)
[2022-01-24 08:50] LABS: HEMATOCRIT 23.9 % (32.4-45.2); HEMOGLOBIN 7.9 GM/dL (10.7-15.3); MCH 31.3 pg (25.7-33.7); MCHC 33.1 g/dl (32.0-36.0); MEAN CELL VOLUME 94.6 fl (80-96); MEAN PLT VOLUME 8.3 fl (7.5-11.1); PLATELET COUNT 140 10^3/uL (134-434); RBC 2.52 M/mm3 (3.60-5.2); RDW 15.7 % (11.6-15.6)
[2022-01-24] MEDS ORDERED: EPOETIN ALFA-EPBX 10,000 UNIT/ML VIAL SQ ONE (09:03)
[2022-01-24] MEDS ORDERED: SODIUM CHLORIDE 250 ML IV PRN (09:03)
[2022-01-24 09:19] LABS: CALCIUM 7.6 mg/dL (8.5-10.1)
[2022-01-24 09:20] LABS: ALBUMIN 2.9 g/dl (3.4-5.0); BLOOD UREA NITROGEN 57.4 mg/dL (7-18); MAGNESIUM 2.1 mg/dL (1.8-2.4)
[2022-01-24 09:23] LABS: BILIRUBIN,TOTAL 0.4 mg/dL (0.2-1); CREATININE 4.3 mg/dL (0.55-1.3); PHOSPHOROUS 5.3 mg/dL (2.5-4.9); TOT PROT 5.7 g/dl (6.4-8.2)
[2022-01-24] MEDS ORDERED: DEXAMETHASONE SOD PHOSPHATE 10 MG/1 ML VIAL IVPUSH SCH (10:00)
[2022-01-24] MEDS ORDERED: SODIUM CHLORIDE 100 ML IVPB ONE (10:28)
[2022-01-24] MEDS ORDERED: AMPICILLIN NA/SULBACTAM NA 1.5 GM VIAL ONE (10:28)
[2022-01-24] MEDS: CALCIUM ACETATE 667 MG CAPSULE (FP) NGT SCH ×3 (10:33→17:53)
[2022-01-24] MEDS: AMINO ACIDS/PROTEIN HYDROLYS 30 ML LIQUID.PKT NGT SCH ×2 (10:33→17:53)
[2022-01-24] MEDS: LEVOTHYROXINE NA 25 MCG TABLET (FP) NGT SCH (10:33)
[2022-01-24] MEDS: AMPICILLIN NA/SULBACTAM NA 3 GM in SODIUM CHLORIDE 100 ML IVPB SCH (10:37)
[2022-01-24] MEDS: ALLOPURINOL 100 MG TABLET (FP) NGT SCH (10:38)
[2022-01-24] MEDS: PANTOPRAZOLE SODIUM 40 MG VIAL IVPUSH SCH (10:38)
[2022-01-24] MEDS ORDERED: POTASSIUM CHLORIDE ORAL LIQUID 20 MEQ/15 ML PO ONE (10:46)
[2022-01-24] MEDS: KCL 10 MEQ IVPB 10 MEQ/100 ML INFUS.BAG IVPB SCH ×2 (11:45→13:14)
[2022-01-24] MEDS ORDERED: ACETAMINOPHEN 1000 MG/100 ML BAG IVPB PRN ×2 (13:20→17:24)
[2022-01-24] MEDS ORDERED: AMINO ACIDS 4.25%/D5W 1,000 ML IV SCH (14:00)
[2022-01-24] MEDS ORDERED: LABETALOL HCL 5 MG/1 ML (100MG/20 ML VIAL) IVPB ONE (14:15)
[2022-01-24] MEDS ORDERED: ALBUTEROL SO4 2.5/IPRATROPIUM 0.5 INH SOL 3 ML VIAL.NEB. NEB PRN (17:24)
[2022-01-24] MEDS ORDERED: ACETAMINOPHEN 650 MG/20.3 ML ORAL SOLUTION (CUPS) NGT PRN (17:24)
[2022-01-24] MEDS ORDERED: MELATONIN 1 MG TABLET NGT PRN (17:24)
[2022-01-24] MEDS ORDERED: METOPROLOL TARTRATE 5 MG/5 ML VIAL IVPB PRN (17:24)
[2022-01-24] MEDS: AMINO ACIDS 4.25%/D5W 1,000 ML IV SCH (17:49)
[2022-01-24] MEDS ORDERED: WARFARIN NA 5 MG TABLET NGT SCH (18:00)
[2022-01-24] MEDS ORDERED: hydrOXYzine HCL 100 MG/2 ML VIAL IM ONE (21:12)
[2022-01-24] MEDS ORDERED: ROSUVASTATIN CA 10 MG TABLET NGT SCH (22:00)
[2022-01-24] MEDS ORDERED: hydrOXYzine HCL 50 MG/ML VIAL IM ONE (22:45)
[2022-01-24] MEDS: INSULIN (LEVEMIR) 100 UNITS/ML UNITS SQ SCH (22:59)
[2022-01-25] MEDS ORDERED: LORazepam 2 MG/ML SDV VIAL IVPUSH ONE (01:14)
[2022-01-25] MEDS ORDERED: LEVOTHYROXINE NA 25 MCG TABLET (FP) NGT SCH (07:00)
[2022-01-25] MEDS: INSULIN SLIDING SCALE (NOVOLOG) 1 VIAL SQ SCH ×4 (07:50→21:41)
[2022-01-25] MEDS: CALCIUM ACETATE 667 MG CAPSULE (FP) NGT SCH ×2 (08:00→12:01)
[2022-01-25] MEDS: AMINO ACIDS/PROTEIN HYDROLYS 30 ML LIQUID.PKT NGT SCH (08:00)
[2022-01-25 08:13] LABS: HEMATOCRIT 24.1 % (32.4-45.2); HEMOGLOBIN 7.8 GM/dL (10.7-15.3); MCHC 32.4 g/dl (32.0-36.0); MEAN CELL VOLUME 95.6 fl (80-96); PLATELET COUNT 166 10^3/uL (134-434); RBC 2.52 M/mm3 (3.60-5.2); WHITE BLOOD COUNT 8.9 K/mm3 (4.0-10.0)
[2022-01-25 08:24] LABS: INR 2.32 (0.83-1.09); PROTHROMBIN TIME (PATIENT) 26.9 SEC (9.7-13.0)
[2022-01-25 08:30] LABS: CALCIUM 7.6 mg/dL (8.5-10.1)
[2022-01-25 08:32] LABS: CREATININE 6.1 mg/dL (0.55-1.3)
[2022-01-25 08:34] LABS: BILIRUBIN,TOTAL 0.5 mg/dL (0.2-1); TOT PROT 5.9 g/dl (6.4-8.2)
[2022-01-25 08:36] LABS: BLOOD UREA NITROGEN 83.4 mg/dL (7-18)
[2022-01-25] MEDS ORDERED: DEXAMETHASONE SOD PHOSPHATE 10 MG/1 ML VIAL IVPUSH SCH (10:00)
[2022-01-25] MEDS ORDERED: DEXAMETHASONE SOD PHOSPHATE 4 MG/1 ML VIAL IVPUSH SCH (10:14)
[2022-01-25] MEDS ORDERED: AMPICILLIN NA/SULBACTAM NA 1.5 GM VIAL ONE (10:57)
[2022-01-25] MEDS ORDERED: SODIUM CHLORIDE 100 ML IVPB ONE (10:57)
[2022-01-25] MEDS: AMPICILLIN NA/SULBACTAM NA 3 GM in SODIUM CHLORIDE 100 ML IVPB SCH (11:00)
[2022-01-25] MEDS: PANTOPRAZOLE SODIUM 40 MG VIAL IVPUSH SCH (11:00)
[2022-01-25] MEDS: ALLOPURINOL 100 MG TABLET (FP) NGT SCH (11:00)
[2022-01-25] MEDS ORDERED: WARFARIN NA 5 MG TABLET PO SCH (12:53)
[2022-01-25] MEDS ORDERED: EPOETIN ALFA-EPBX 10,000 UNIT/ML VIAL SQ ONE (13:45)
[2022-01-25] MEDS: METOPROLOL TARTRATE 25 MG TABLET (FP) NGT SCH (14:00)
[2022-01-25] MEDS: AMINO ACIDS 4.25%/D5W 1,000 ML IV SCH (14:42)
[2022-01-25] MEDS: hydrALAZINE HCL 10 MG TABLET PO SCH ×2 (15:20→21:21)
[2022-01-25] MEDS: VERAPAMIL HCL 40 MG TABLET PO SCH ×2 (15:20→21:22)
[2022-01-25] MEDS ORDERED: SODIUM CHLORIDE 250 ML IV PRN (17:24)
[2022-01-25] MEDS: CALCIUM ACETATE 667 MG CAPSULE (FP) PO SCH (17:28)
[2022-01-25] MEDS: AMINO ACIDS/PROTEIN HYDROLYS 30 ML LIQUID.PKT PO SCH (17:29)
[2022-01-25 18:10] LABS: ARTERIAL BLD GAS O2 SATURATION 96.2 % (95-98); ARTERIAL BLOOD GAS BASE EXCESS 6.6 mmol/L (-2-2); ARTERIAL BLOOD GAS pH 7.574 (7.350-7.450)
[2022-01-25 18:11] LABS: ALLENS TEST POSITIVE
[2022-01-25 18:15] LABS: CREATININE 1.8 mg/dL (0.55-1.3)
[2022-01-25 18:40] LABS: BLOOD UREA NITROGEN 21.6 mg/dL (7-18); CALCIUM 9.2 mg/dL (8.5-10.1)
[2022-01-25] MEDS: METOPROLOL TARTRATE 25 MG TABLET (FP) PO SCH (21:21)
[2022-01-25] MEDS: QUEtiapine FUMARATE 50 MG TABLET PO SCH ×2 (21:21→21:41)
[2022-01-25] MEDS: ROSUVASTATIN CA 10 MG TABLET PO SCH (21:21)
[2022-01-25] MEDS: ACETAMINOPHEN 650 MG/20.3 ML ORAL SOLUTION (CUPS) PO PRN (21:25)
[2022-01-25] MEDS: INSULIN (LEVEMIR) 100 UNITS/ML UNITS SQ SCH (21:40)
[2022-01-25] MEDS ORDERED: MELATONIN 1 MG TABLET PO SCH (22:00)
[2022-01-26] MEDS: SIMETHICONE 80 MG TAB.CHEW (FP) PO PRN (03:39)
[2022-01-26] MEDS: METOPROLOL TARTRATE 25 MG TABLET (FP) NGT SCH (04:28)
[2022-01-26] MEDS: VERAPAMIL HCL 40 MG TABLET NGT SCH (04:28)
[2022-01-26] MEDS: hydrALAZINE HCL 10 MG TABLET NGT SCH (04:28)
[2022-01-26] MEDS: INSULIN SLIDING SCALE (NOVOLOG) 1 VIAL SQ SCH ×4 (06:43→21:02)
[2022-01-26] MEDS: VERAPAMIL HCL 40 MG TABLET PO SCH ×3 (06:46→21:01)
[2022-01-26] MEDS: LEVOTHYROXINE NA 25 MCG TABLET (FP) PO SCH (06:46)
[2022-01-26] MEDS: METOPROLOL TARTRATE 25 MG TABLET (FP) PO SCH ×3 (06:46→21:01)
[2022-01-26] MEDS: hydrALAZINE HCL 10 MG TABLET PO SCH ×3 (06:46→21:01)
[2022-01-26] MEDS: AMINO ACIDS/PROTEIN HYDROLYS 30 ML LIQUID.PKT PO SCH ×2 (08:06→17:12)
[2022-01-26] MEDS: CALCIUM ACETATE 667 MG CAPSULE (FP) PO SCH ×3 (08:06→17:12)
[2022-01-26 08:15] LABS: BASO % 0.4 % (0-2.0); EOS % 2.8 % (0-4.5); HEMATOCRIT 24.6 % (32.4-45.2); HEMOGLOBIN 8.2 GM/dL (10.7-15.3); LYMPH % 9.9 % (8-40); MCH 31.6 pg (25.7-33.7); MCHC 33.2 g/dl (32.0-36.0); MEAN CELL VOLUME 95.2 fl (80-96); MEAN PLT VOLUME 8.7 fl (7.5-11.1); MONO % 4.8 % (3.8-10.2); NEUT % 82.1 % (42.8-82.8); PLATELET COUNT 181 10^3/uL (134-434); RBC 2.58 M/mm3 (3.60-5.2); RDW 16.1 % (11.6-15.6); WHITE BLOOD COUNT 6.4 K/mm3 (4.0-10.0)
[2022-01-26 08:37] LABS: INR 3.1 (0.83-1.09); PROTHROMBIN TIME (PATIENT) 36.1 SEC (9.7-13.0)
[2022-01-26 08:38] LABS: ALBUMIN 2.9 g/dl (3.4-5.0); BLOOD UREA NITROGEN 45.5 mg/dL (7-18); CALCIUM 7.9 mg/dL (8.5-10.1)
[2022-01-26 08:41] LABS: CREATININE 4.1 mg/dL (0.55-1.3); PHOSPHOROUS 5.6 mg/dL (2.5-4.9)
[2022-01-26 08:42] LABS: TOT PROT 5.8 g/dl (6.4-8.2)
[2022-01-26 08:43] LABS: BILIRUBIN,TOTAL 0.4 mg/dL (0.2-1)
[2022-01-26] MEDS: ALLOPURINOL 100 MG TABLET (FP) NGT SCH (09:18)
[2022-01-26] MEDS ORDERED: AMPICILLIN NA/SULBACTAM NA 1.5 GM VIAL ONE (09:31)
[2022-01-26] MEDS ORDERED: SODIUM CHLORIDE 100 ML IVPB ONE ×2 (09:32→10:20)
[2022-01-26] MEDS: PANTOPRAZOLE SODIUM 40 MG VIAL IVPUSH SCH (09:54)
[2022-01-26] MEDS: AMPICILLIN NA/SULBACTAM NA 3 GM in SODIUM CHLORIDE 100 ML IVPB SCH ×2 (10:10→10:21)
[2022-01-26] MEDS ORDERED: DEXAMETHASONE SOD PHOSPHATE 4 MG/1 ML VIAL IVPUSH SCH (10:14)
[2022-01-26] MEDS ORDERED: AMPICILLIN NA/SULBACTAM NA 3 GM VIAL ONE (10:19)
[2022-01-26] MEDS ORDERED: POTASSIUM CHLORIDE ORAL LIQUID 20 MEQ/15 ML PO ONE (10:45)
[2022-01-26 18:38] LABS: EPI CELLS >36 /uL (0-25.1); HYALINE CASTS 7 /uL (0-3.1); PH,URINE 8.5 (5.0-8.0); URINE APPEARANCE CLEAR; URINE BACTERIA 34 /uL (0-1359); URINE BILIRUBIN NEGATIVE (NEGATIVE); URINE COLOR YELLOW; URINE GLUCOSE (UA) TRACE (NEGATIVE); URINE KETONE NEGATIVE (NEGATIVE); URINE LEUK ESTERASE NEGATIVE (NEGATIVE); URINE NITRITE NEGATIVE (NEGATIVE); URINE PROTEIN 3+ (NEGATIVE); URINE RBC 332 /uL (0-23.9); URINE UROBILINOGEN 0.2 mg/dL (0.2-1.0)
[2022-01-26 18:58] LABS: URINE WBC 73 /uL (0-25.8)
[2022-01-26] MEDS: ROSUVASTATIN CA 10 MG TABLET PO SCH (21:01)
[2022-01-26] MEDS: QUEtiapine FUMARATE 50 MG TABLET PO SCH (21:02)
[2022-01-26] MEDS: INSULIN (LEVEMIR) 100 UNITS/ML UNITS SQ SCH (21:02)
[2022-01-26] MEDS: MELATONIN 5 MG TABLETS PO SCH (21:57)
[2022-01-26] MEDS: ACETAMINOPHEN 650 MG/20.3 ML ORAL SOLUTION (CUPS) PO PRN (23:26)
[2022-01-27] MEDS: INSULIN SLIDING SCALE (NOVOLOG) 1 VIAL SQ SCH ×4 (06:06→21:58)
[2022-01-27] MEDS: LEVOTHYROXINE NA 25 MCG TABLET (FP) PO SCH ×2 (06:11→06:37)
[2022-01-27] MEDS: METOPROLOL TARTRATE 25 MG TABLET (FP) PO SCH ×4 (06:11→21:58)
[2022-01-27] MEDS: hydrALAZINE HCL 10 MG TABLET PO SCH ×4 (06:11→21:58)
[2022-01-27] MEDS: VERAPAMIL HCL 40 MG TABLET PO SCH ×4 (06:12→21:57)
[2022-01-27 07:01] LABS: BASO % 0.7 % (0-2.0); EOS % 4.8 % (0-4.5); HEMATOCRIT 23.8 % (32.4-45.2); HEMOGLOBIN 7.8 GM/dL (10.7-15.3); MCH 30.7 pg (25.7-33.7); MCHC 32.6 g/dl (32.0-36.0); MEAN CELL VOLUME 94.4 fl (80-96); MEAN PLT VOLUME 8.1 fl (7.5-11.1); MONO % 5.4 % (3.8-10.2); NEUT % 71.1 % (42.8-82.8); PLATELET COUNT 199 10^3/uL (134-434); RBC 2.52 M/mm3 (3.60-5.2); RDW 16.4 % (11.6-15.6); WHITE BLOOD COUNT 4.9 K/mm3 (4.0-10.0)
[2022-01-27 07:03] LABS: INR 2.27 (0.83-1.09); PROTHROMBIN TIME (PATIENT) 26.3 SEC (9.7-13.0)
[2022-01-27 07:26] LABS: CALCIUM 7.6 mg/dL (8.5-10.1)
[2022-01-27 07:27] LABS: ALBUMIN 2.8 g/dl (3.4-5.0)
[2022-01-27 07:30] LABS: CREATININE 6.4 mg/dL (0.55-1.3)
[2022-01-27 07:31] LABS: BILIRUBIN,TOTAL 0.5 mg/dL (0.2-1); TOT PROT 5.7 g/dl (6.4-8.2)
[2022-01-27 07:58] LABS: BLOOD UREA NITROGEN 74.1 mg/dL (7-18)
[2022-01-27 08:17] LABS: ARTERIAL BLD GAS O2 SATURATION 96.5 % (95-98); ARTERIAL BLOOD GAS PO2 86.2 mmHg (80-100); ARTERIAL BLOOD GAS pH 7.393 (7.350-7.450)
[2022-01-27 08:18] LABS: ALLENS TEST POSITIVE
[2022-01-27] MEDS ORDERED: AMPICILLIN NA/SULBACTAM NA 3 GM VIAL ONE (09:08)
[2022-01-27] MEDS ORDERED: SODIUM CHLORIDE 100 ML IVPB ONE (09:08)
[2022-01-27] MEDS: CALCIUM ACETATE 667 MG CAPSULE (FP) PO SCH ×3 (09:51→17:53)
[2022-01-27] MEDS: AMINO ACIDS/PROTEIN HYDROLYS 30 ML LIQUID.PKT PO SCH ×2 (09:51→17:53)
[2022-01-27] MEDS: AMPICILLIN NA/SULBACTAM NA 3 GM in SODIUM CHLORIDE 100 ML IVPB SCH (10:42)
[2022-01-27] MEDS: PANTOPRAZOLE SODIUM 40 MG VIAL IVPUSH SCH (10:43)
[2022-01-27] MEDS: ALLOPURINOL 100 MG TABLET (FP) PO SCH (10:47)
[2022-01-27] MEDS ORDERED: SODIUM CHLORIDE 1,000 ML IV SCH (13:45)
[2022-01-27] MEDS: NYSTATIN 500,000 UNITS/5 ML SUSPENSION PO SCH (17:53)
[2022-01-27] MEDS: WARFARIN NA 5 MG TABLET PO SCH (17:54)
[2022-01-27] MEDS ORDERED: NYSTATIN 500,000 UNITS/5 ML SUSPENSION PO SCH (18:00)
[2022-01-27] MEDS ORDERED: INSULIN (NOVOLOG) ASPART 100 UNITS/ML 10ML VIAL ONE (21:34)
[2022-01-27] MEDS: ROSUVASTATIN CA 10 MG TABLET PO SCH (21:57)
[2022-01-27] MEDS: INSULIN (LEVEMIR) 100 UNITS/ML UNITS SQ SCH (21:58)
[2022-01-27] MEDS: QUEtiapine FUMARATE 50 MG TABLET PO SCH (21:59)
[2022-01-27] MEDS: ACETAMINOPHEN 650 MG/20.3 ML ORAL SOLUTION (CUPS) PO PRN (23:21)
[2022-01-28] MEDS: MELATONIN 5 MG TABLETS PO SCH ×2 (00:25→21:23)
[2022-01-28] MEDS: NYSTATIN 500,000 UNITS/5 ML SUSPENSION PO SCH ×4 (00:25→18:45)
[2022-01-28] MEDS: INSULIN SLIDING SCALE (NOVOLOG) 1 VIAL SQ SCH ×4 (06:08→21:34)
[2022-01-28] MEDS: VERAPAMIL HCL 40 MG TABLET PO SCH ×3 (06:17→21:30)
[2022-01-28] MEDS: hydrALAZINE HCL 10 MG TABLET PO SCH ×3 (06:18→21:23)
[2022-01-28] MEDS: METOPROLOL TARTRATE 25 MG TABLET (FP) PO SCH ×3 (06:18→21:23)
[2022-01-28] MEDS: LEVOTHYROXINE NA 25 MCG TABLET (FP) PO SCH (06:18)
[2022-01-28] MEDS ORDERED: SODIUM CHLORIDE 250 ML IV PRN (06:37)
[2022-01-28] MEDS ORDERED: EPOETIN ALFA-EPBX 10,000 UNIT/ML VIAL SQ ONE (08:00)
[2022-01-28 08:56] LABS: BASO % 0.7 % (0-2.0); EOS % 4.6 % (0-4.5); HEMATOCRIT 23.3 % (32.4-45.2); HEMOGLOBIN 7.5 GM/dL (10.7-15.3); LYMPH % 13.2 % (8-40); MCH 30.6 pg (25.7-33.7); MCHC 32.3 g/dl (32.0-36.0); MEAN CELL VOLUME 94.8 fl (80-96); MEAN PLT VOLUME 8.2 fl (7.5-11.1); MONO % 4.5 % (3.8-10.2); PLATELET COUNT 208 10^3/uL (134-434); RBC 2.46 M/mm3 (3.60-5.2); RDW 16.4 % (11.6-15.6)
[2022-01-28 09:03] LABS: CALCIUM 7.1 mg/dL (8.5-10.1)
[2022-01-28 09:04] LABS: BLOOD UREA NITROGEN 88.8 mg/dL (7-18); MAGNESIUM 2.3 mg/dL (1.8-2.4)
[2022-01-28 09:07] LABS: PHOSPHOROUS 8.3 mg/dL (2.5-4.9)
[2022-01-28 09:13] LABS: CREATININE 7.4 mg/dL (0.55-1.3)
[2022-01-28] MEDS ORDERED: SODIUM CHLORIDE 100 ML IVPB ONE (10:30)
[2022-01-28] MEDS ORDERED: AMPICILLIN NA/SULBACTAM NA 3 GM VIAL ONE (10:30)
[2022-01-28] MEDS: PANTOPRAZOLE SODIUM 40 MG VIAL IVPUSH SCH (10:31)
[2022-01-28] MEDS: AMINO ACIDS/PROTEIN HYDROLYS 30 ML LIQUID.PKT PO SCH ×2 (10:31→18:46)
[2022-01-28] MEDS: CALCIUM ACETATE 667 MG CAPSULE (FP) PO SCH ×3 (10:31→18:45)
[2022-01-28] MEDS: AMPICILLIN NA/SULBACTAM NA 3 GM in SODIUM CHLORIDE 100 ML IVPB SCH (10:31)
[2022-01-28] MEDS: ALLOPURINOL 100 MG TABLET (FP) PO SCH (10:31)
[2022-01-28] MEDS ORDERED: ALBUTEROL SO4 2.5/IPRATROPIUM 0.5 INH SOL 3 ML VIAL.NEB. NEB PRN (12:28)
[2022-01-28] MEDS: WARFARIN NA 5 MG TABLET PO SCH (19:43)
[2022-01-28] MEDS: ROSUVASTATIN CA 10 MG TABLET PO SCH (21:23)
[2022-01-28] MEDS: QUEtiapine FUMARATE 50 MG TABLET PO SCH (21:24)
[2022-01-28] MEDS: INSULIN (LEVEMIR) 100 UNITS/ML UNITS SQ SCH (21:35)
[2022-01-29] MEDS: NYSTATIN 500,000 UNITS/5 ML SUSPENSION PO SCH ×4 (00:51→18:13)
[2022-01-29] MEDS: INSULIN SLIDING SCALE (NOVOLOG) 1 VIAL SQ SCH ×4 (06:32→22:46)
[2022-01-29] MEDS: LEVOTHYROXINE NA 25 MCG TABLET (FP) PO SCH (06:33)
[2022-01-29] MEDS: METOPROLOL TARTRATE 25 MG TABLET (FP) PO SCH ×4 (06:44→22:34)
[2022-01-29] MEDS: hydrALAZINE HCL 10 MG TABLET PO SCH ×4 (06:44→22:35)
[2022-01-29] MEDS: VERAPAMIL HCL 40 MG TABLET PO SCH ×4 (06:44→22:35)
[2022-01-29 08:01] LABS: EOS % 3.7 % (0-4.5); HEMATOCRIT 26.1 % (32.4-45.2); HEMOGLOBIN 8.5 GM/dL (10.7-15.3); MCH 30.5 pg (25.7-33.7); MCHC 32.7 g/dl (32.0-36.0); MEAN CELL VOLUME 93.5 fl (80-96); MEAN PLT VOLUME 8.1 fl (7.5-11.1); MONO % 5.8 % (3.8-10.2); NEUT % 74.5 % (42.8-82.8); PLATELET COUNT 186 10^3/uL (134-434); RDW 15.9 % (11.6-15.6); WHITE BLOOD COUNT 4.6 K/mm3 (4.0-10.0)
[2022-01-29 08:10] LABS: INR 1.64 (0.83-1.09)
[2022-01-29] MEDS: CALCIUM ACETATE 667 MG CAPSULE (FP) PO SCH ×3 (08:30→17:10)
[2022-01-29] MEDS: AMINO ACIDS/PROTEIN HYDROLYS 30 ML LIQUID.PKT PO SCH ×2 (08:30→17:09)
[2022-01-29 08:42] LABS: CALCIUM 7.6 mg/dL (8.5-10.1)
[2022-01-29 08:43] LABS: ALBUMIN 2.8 g/dl (3.4-5.0); MAGNESIUM 2.2 mg/dL (1.8-2.4)
[2022-01-29 08:45] LABS: CREATININE 5.5 mg/dL (0.55-1.3)
[2022-01-29 08:46] LABS: PHOSPHOROUS 5.9 mg/dL (2.5-4.9)
[2022-01-29 08:47] LABS: BILIRUBIN,TOTAL 0.5 mg/dL (0.2-1); TOT PROT 5.6 g/dl (6.4-8.2)
[2022-01-29 09:02] LABS: BLOOD UREA NITROGEN 48.3 mg/dL (7-18)
[2022-01-29] MEDS ORDERED: SODIUM CHLORIDE 100 ML IVPB ONE (09:10)
[2022-01-29] MEDS ORDERED: AMPICILLIN NA/SULBACTAM NA 3 GM VIAL ONE (09:10)
[2022-01-29] MEDS: PANTOPRAZOLE SODIUM 40 MG VIAL IVPUSH SCH (09:35)
[2022-01-29] MEDS: AMPICILLIN NA/SULBACTAM NA 3 GM in SODIUM CHLORIDE 100 ML IVPB SCH (09:41)
[2022-01-29] MEDS: ALLOPURINOL 100 MG TABLET (FP) PO SCH (09:43)
[2022-01-29] MEDS ORDERED: WARFARIN NA 5 MG TABLET PO SCH (12:01)
[2022-01-29] MEDS ORDERED: HEPARIN NA (PORCINE) 5,000 UNITS/ML 1ML VIAL IVPUSH ONE (12:03)
[2022-01-29] MEDS ORDERED: HEPARIN NA (PORCINE) 5,000 UNITS/ML 1ML VIAL IVPUSH PRN ×2 (12:03)
[2022-01-29] MEDS: HEPARIN INFUSION - 25,000 UNITS/500 ML INFUS.BAG IVPB SCH (13:05)
[2022-01-29] MEDS ORDERED: WARFARIN NA 10 MG TABLET ONE (17:05)
[2022-01-29] MEDS ORDERED: WARFARIN NA 2.5 MG TABLET ONE (17:05)
[2022-01-29] MEDS: WARFARIN NA 10 MG, WARFARIN NA 2.5 MG PO SCH (17:09)
[2022-01-29] MEDS: ROSUVASTATIN CA 10 MG TABLET PO SCH (22:35)
[2022-01-29] MEDS: MELATONIN 5 MG TABLETS PO SCH (22:35)
[2022-01-29] MEDS: QUEtiapine FUMARATE 50 MG TABLET PO SCH (22:44)
[2022-01-29] MEDS: INSULIN (LEVEMIR) 100 UNITS/ML UNITS SQ SCH (22:46)
[2022-01-30] MEDS: NYSTATIN 500,000 UNITS/5 ML SUSPENSION PO SCH ×5 (00:04→23:15)
[2022-01-30] MEDS: ACETAMINOPHEN 650 MG/20.3 ML ORAL SOLUTION (CUPS) PO PRN ×2 (01:49→16:58)
[2022-01-30] MEDS: SIMETHICONE 80 MG TAB.CHEW (FP) PO PRN (03:27)
[2022-01-30] MEDS: LEVOTHYROXINE NA 25 MCG TABLET (FP) PO SCH (06:50)
[2022-01-30] MEDS: METOPROLOL TARTRATE 25 MG TABLET (FP) PO SCH ×3 (06:50→21:45)
[2022-01-30] MEDS: VERAPAMIL HCL 40 MG TABLET PO SCH ×3 (06:50→21:55)
[2022-01-30] MEDS: hydrALAZINE HCL 10 MG TABLET PO SCH ×3 (06:50→21:45)
[2022-01-30] MEDS: INSULIN SLIDING SCALE (NOVOLOG) 1 VIAL SQ SCH ×4 (06:54→21:53)
[2022-01-30] MEDS ORDERED: SODIUM CHLORIDE 250 ML IV PRN (07:24)
[2022-01-30] MEDS ORDERED: EPOETIN ALFA-EPBX 10,000 UNIT/ML VIAL SQ ONE (08:00)
[2022-01-30] MEDS: AMINO ACIDS/PROTEIN HYDROLYS 30 ML LIQUID.PKT PO SCH ×3 (08:21→17:03)
[2022-01-30] MEDS: CALCIUM ACETATE 667 MG CAPSULE (FP) PO SCH ×3 (08:21→17:01)
[2022-01-30 10:39] LABS: ALBUMIN 2.6 g/dl (3.4-5.0); CALCIUM 7.1 mg/dL (8.5-10.1)
[2022-01-30 10:40] LABS: BLOOD UREA NITROGEN 59.1 mg/dL (7-18); MAGNESIUM 2.2 mg/dL (1.8-2.4)
[2022-01-30 10:42] LABS: CREATININE 6.4 mg/dL (0.55-1.3)
[2022-01-30 10:43] LABS: PHOSPHOROUS 6.4 mg/dL (2.5-4.9)
[2022-01-30 10:44] LABS: BILIRUBIN,TOTAL 0.5 mg/dL (0.2-1); TOT PROT 5.4 g/dl (6.4-8.2)
[2022-01-30] MEDS: PANTOPRAZOLE SODIUM 40 MG VIAL IVPUSH SCH ×2 (11:31→12:26)
[2022-01-30] MEDS: ALLOPURINOL 100 MG TABLET (FP) PO SCH ×2 (11:32→12:24)
[2022-01-30] MEDS: HEPARIN INFUSION - 25,000 UNITS/500 ML INFUS.BAG IVPB SCH (12:43)
[2022-01-30 14:02] LABS: BASO % 0.6 % (0-2.0); EOS % 3.7 % (0-4.5); HEMATOCRIT 25.6 % (32.4-45.2); HEMOGLOBIN 8.4 GM/dL (10.7-15.3); LYMPH % 13.5 % (8-40); MCH 30.8 pg (25.7-33.7); MCHC 32.8 g/dl (32.0-36.0); MEAN CELL VOLUME 93.8 fl (80-96); MEAN PLT VOLUME 8.3 fl (7.5-11.1); MONO % 4.6 % (3.8-10.2); NEUT % 77.6 % (42.8-82.8); PLATELET COUNT 174 10^3/uL (134-434); RBC 2.73 M/mm3 (3.60-5.2); RDW 16.7 % (11.6-15.6); WHITE BLOOD COUNT 5.3 K/mm3 (4.0-10.0)
[2022-01-30 14:39] LABS: INR 2.05 (0.83-1.09); PROTHROMBIN TIME (PATIENT) 23.8 SEC (9.7-13.0)
[2022-01-30 15:00] LABS: ACTIVATED PTT 155.3 SECONDS (25.2-36.5)
[2022-01-30] MEDS ORDERED: WARFARIN NA 2.5 MG TABLET ONE (16:46)
[2022-01-30] MEDS ORDERED: WARFARIN NA 10 MG TABLET ONE (16:46)
[2022-01-30] MEDS: WARFARIN NA 10 MG, WARFARIN NA 2.5 MG PO SCH (17:03)
[2022-01-30] MEDS: QUEtiapine FUMARATE 50 MG TABLET PO SCH (21:45)
[2022-01-30] MEDS: MELATONIN 5 MG TABLETS PO SCH (21:45)
[2022-01-30] MEDS: ROSUVASTATIN CA 10 MG TABLET PO SCH (21:45)
[2022-01-30] MEDS: INSULIN (LEVEMIR) 100 UNITS/ML UNITS SQ SCH (21:53)
[2022-01-31] MEDS: LEVOTHYROXINE NA 25 MCG TABLET (FP) PO SCH (06:13)
[2022-01-31] MEDS: METOPROLOL TARTRATE 25 MG TABLET (FP) PO SCH ×3 (06:13→22:18)
[2022-01-31] MEDS: hydrALAZINE HCL 10 MG TABLET PO SCH ×3 (06:13→23:13)
[2022-01-31] MEDS: NYSTATIN 500,000 UNITS/5 ML SUSPENSION PO SCH ×3 (06:14→17:26)
[2022-01-31] MEDS: VERAPAMIL HCL 40 MG TABLET PO SCH ×3 (06:14→23:13)
[2022-01-31] MEDS: INSULIN SLIDING SCALE (NOVOLOG) 1 VIAL SQ SCH ×4 (06:20→22:22)
[2022-01-31 07:58] LABS: BASO % 2.2 % (0-2.0); EOS % 3.5 % (0-4.5); HEMATOCRIT 26.4 % (32.4-45.2); HEMOGLOBIN 8.6 GM/dL (10.7-15.3); LYMPH % 17.4 % (8-40); MCH 30.7 pg (25.7-33.7); MCHC 32.7 g/dl (32.0-36.0); MEAN PLT VOLUME 8.6 fl (7.5-11.1); MONO % 4.8 % (3.8-10.2); NEUT % 72.1 % (42.8-82.8); PLATELET COUNT 192 10^3/uL (134-434); RBC 2.81 M/mm3 (3.60-5.2); RDW 16.4 % (11.6-15.6); WHITE BLOOD COUNT 4.5 K/mm3 (4.0-10.0)
[2022-01-31 08:29] LABS: CALCIUM 7.3 mg/dL (8.5-10.1)
[2022-01-31] MEDS: CALCIUM ACETATE 667 MG CAPSULE (FP) PO SCH ×3 (08:29→17:26)
[2022-01-31 08:30] LABS: ALBUMIN 2.8 g/dl (3.4-5.0); BLOOD UREA NITROGEN 42.9 mg/dL (7-18)
[2022-01-31 08:33] LABS: CREATININE 5.1 mg/dL (0.55-1.3); PHOSPHOROUS 5.4 mg/dL (2.5-4.9)
[2022-01-31 08:34] LABS: TOT PROT 5.8 g/dl (6.4-8.2)
[2022-01-31 08:35] LABS: BILIRUBIN,TOTAL 0.3 mg/dL (0.2-1)
[2022-01-31] MEDS: AMINO ACIDS/PROTEIN HYDROLYS 30 ML LIQUID.PKT PO SCH ×2 (09:29→17:26)
[2022-01-31] MEDS: PANTOPRAZOLE SODIUM 40 MG VIAL IVPUSH SCH (09:29)
[2022-01-31] MEDS: ALLOPURINOL 100 MG TABLET (FP) PO SCH (09:30)
[2022-01-31] MEDS ORDERED: SODIUM CHLORIDE 250 ML IV PRN (10:27)
[2022-01-31 12:51] LABS: HEMATOCRIT 27.3 % (32.4-45.2); HEMOGLOBIN 8.8 GM/dL (10.7-15.3); MCH 30.2 pg (25.7-33.7); MCHC 32.2 g/dl (32.0-36.0); MEAN CELL VOLUME 93.5 fl (80-96); PLATELET COUNT 178 10^3/uL (134-434); RBC 2.92 M/mm3 (3.60-5.2); RDW 16.5 % (11.6-15.6); WHITE BLOOD COUNT 4.5 K/mm3 (4.0-10.0)
[2022-01-31 13:54] LABS: INR 2.86 (0.83-1.09); PROTHROMBIN TIME (PATIENT) 33.2 SEC (9.7-13.0)
[2022-01-31 13:57] LABS: ACTIVATED PTT 78.3 SECONDS (25.2-36.5)
[2022-01-31] MEDS: HEPARIN INFUSION - 25,000 UNITS/500 ML INFUS.BAG IVPB SCH (14:38)
[2022-01-31] MEDS ORDERED: WARFARIN NA 10 MG TABLET PO SCH (14:52)
[2022-01-31] MEDS ORDERED: WARFARIN NA 5 MG TABLET PO SCH (17:16)
[2022-01-31] MEDS: ACETAMINOPHEN 650 MG/20.3 ML ORAL SOLUTION (CUPS) PO PRN (17:27)
[2022-01-31] MEDS: ROSUVASTATIN CA 10 MG TABLET PO SCH (22:18)
[2022-01-31] MEDS: MELATONIN 5 MG TABLETS PO SCH (22:18)
[2022-01-31] MEDS: QUEtiapine FUMARATE 50 MG TABLET PO SCH (23:13)
[2022-01-31] MEDS: INSULIN (LEVEMIR) 100 UNITS/ML UNITS SQ SCH (23:27)
[2022-02-01] MEDS: NYSTATIN 500,000 UNITS/5 ML SUSPENSION PO SCH ×4 (03:43→17:25)
[2022-02-01] MEDS: hydrALAZINE HCL 10 MG TABLET PO SCH ×3 (06:02→21:58)
[2022-02-01] MEDS: METOPROLOL TARTRATE 25 MG TABLET (FP) PO SCH ×3 (06:02→21:58)
[2022-02-01] MEDS: LEVOTHYROXINE NA 25 MCG TABLET (FP) PO SCH (06:03)
[2022-02-01] MEDS: VERAPAMIL HCL 40 MG TABLET PO SCH ×3 (06:03→22:01)
[2022-02-01] MEDS: INSULIN SLIDING SCALE (NOVOLOG) 1 VIAL SQ SCH ×4 (06:25→21:59)
[2022-02-01] MEDS: AMINO ACIDS/PROTEIN HYDROLYS 30 ML LIQUID.PKT PO SCH ×2 (10:07→16:46)
[2022-02-01] MEDS: ALLOPURINOL 100 MG TABLET (FP) PO SCH (10:07)
[2022-02-01] MEDS: PANTOPRAZOLE SODIUM 40 MG VIAL IVPUSH SCH (10:07)
[2022-02-01] MEDS: CALCIUM ACETATE 667 MG CAPSULE (FP) PO SCH ×3 (10:07→16:46)
[2022-02-01] MEDS ORDERED: EPOETIN ALFA-EPBX 10,000 UNIT/ML VIAL IVPUSH ONE (12:30)
[2022-02-01 12:31] LABS: BASO % 1.2 % (0-2.0); EOS % 2.8 % (0-4.5); HEMATOCRIT 25.4 % (32.4-45.2); HEMOGLOBIN 8.4 GM/dL (10.7-15.3); LYMPH % 18.8 % (8-40); MCH 30.6 pg (25.7-33.7); MCHC 33.1 g/dl (32.0-36.0); MEAN CELL VOLUME 92.3 fl (80-96); MONO % 6.9 % (3.8-10.2); NEUT % 70.3 % (42.8-82.8); PLATELET COUNT 176 10^3/uL (134-434); RBC 2.75 M/mm3 (3.60-5.2); RDW 16.3 % (11.6-15.6); WHITE BLOOD COUNT 4.3 K/mm3 (4.0-10.0)
[2022-02-01 12:38] LABS: INR 3.35 (0.83-1.09)
[2022-02-01 13:00] LABS: ALBUMIN 2.7 g/dl (3.4-5.0)
[2022-02-01 13:01] LABS: CALCIUM 7.4 mg/dL (8.5-10.1)
[2022-02-01 13:02] LABS: BLOOD UREA NITROGEN 56.8 mg/dL (7-18); MAGNESIUM 2.2 mg/dL (1.8-2.4)
[2022-02-01 13:05] LABS: CREATININE 6.3 mg/dL (0.55-1.3)
[2022-02-01 13:06] LABS: BILIRUBIN,TOTAL 0.4 mg/dL (0.2-1); TOT PROT 5.4 g/dl (6.4-8.2)
[2022-02-01] MEDS ORDERED: WARFARIN NA 5 MG TABLET PO ONE (18:00)
[2022-02-01] MEDS: ACETAMINOPHEN 650 MG/20.3 ML ORAL SOLUTION (CUPS) PO PRN (20:48)
[2022-02-01] MEDS: ROSUVASTATIN CA 10 MG TABLET PO SCH (21:58)
[2022-02-01] MEDS: QUEtiapine FUMARATE 50 MG TABLET PO SCH (21:58)
[2022-02-01] MEDS: INSULIN (LEVEMIR) 100 UNITS/ML UNITS SQ SCH (22:03)
[2022-02-01] MEDS: MELATONIN 5 MG TABLETS PO SCH (22:09)
[2022-02-02] MEDS: NYSTATIN 500,000 UNITS/5 ML SUSPENSION PO SCH ×4 (01:50→17:32)
[2022-02-02] MEDS: VERAPAMIL HCL 40 MG TABLET PO SCH ×3 (06:46→22:06)
[2022-02-02] MEDS: hydrALAZINE HCL 10 MG TABLET PO SCH ×3 (06:46→22:05)
[2022-02-02] MEDS: METOPROLOL TARTRATE 25 MG TABLET (FP) PO SCH ×3 (06:46→22:05)
[2022-02-02] MEDS: INSULIN SLIDING SCALE (NOVOLOG) 1 VIAL SQ SCH ×4 (06:46→22:21)
[2022-02-02] MEDS: LEVOTHYROXINE NA 25 MCG TABLET (FP) PO SCH (06:46)
[2022-02-02 08:37] LABS: INR 2.49 (0.83-1.09); PROTHROMBIN TIME (PATIENT) 28.9 SEC (9.7-13.0)
[2022-02-02 08:59] LABS: CALCIUM 8.1 mg/dL (8.5-10.1)
[2022-02-02 09:00] LABS: ALBUMIN 2.9 g/dl (3.4-5.0); BLOOD UREA NITROGEN 35.8 mg/dL (7-18)
[2022-02-02 09:03] LABS: PHOSPHOROUS 3.3 mg/dL (2.5-4.9)
[2022-02-02 09:04] LABS: BILIRUBIN,TOTAL 0.4 mg/dL (0.2-1)
[2022-02-02 09:09] LABS: CREATININE 4.7 mg/dL (0.55-1.3)
[2022-02-02] MEDS: AMINO ACIDS/PROTEIN HYDROLYS 30 ML LIQUID.PKT PO SCH ×2 (09:39→16:53)
[2022-02-02] MEDS: CALCIUM ACETATE 667 MG CAPSULE (FP) PO SCH ×3 (09:39→16:53)
[2022-02-02] MEDS: PANTOPRAZOLE SODIUM 40 MG VIAL IVPUSH SCH (09:40)
[2022-02-02] MEDS: ALLOPURINOL 100 MG TABLET (FP) PO SCH (09:42)
[2022-02-02 11:18] LABS: HEMATOCRIT 30.7 % (32.4-45.2); MCH 30.8 pg (25.7-33.7); MCHC 32.7 g/dl (32.0-36.0); MEAN CELL VOLUME 94.1 fl (80-96); MEAN PLT VOLUME 7.7 fl (7.5-11.1); PLATELET COUNT 202 10^3/uL (134-434); RBC 3.26 M/mm3 (3.60-5.2); RDW 16.1 % (11.6-15.6); WHITE BLOOD COUNT 4.2 K/mm3 (4.0-10.0)
[2022-02-02] MEDS: PANTOPRAZOLE 40 MG TABLET PO SCH (13:57)
[2022-02-02] MEDS: ACETAMINOPHEN 650 MG/20.3 ML ORAL SOLUTION (CUPS) PO PRN (15:08)
[2022-02-02] MEDS: WARFARIN NA 5 MG TABLET PO SCH ×2 (17:34→17:54)
[2022-02-02] MEDS ORDERED: ALBUTEROL SO4 2.5/IPRATROPIUM 0.5 INH SOL 3 ML VIAL.NEB. NEB PRN (19:46)
[2022-02-02] MEDS: MELATONIN 5 MG TABLETS PO SCH (22:04)
[2022-02-02] MEDS: ROSUVASTATIN CA 10 MG TABLET PO SCH (22:04)
[2022-02-02] MEDS: QUEtiapine FUMARATE 50 MG TABLET PO SCH (22:05)
[2022-02-02] MEDS: INSULIN (LEVEMIR) 100 UNITS/ML UNITS SQ SCH (22:08)
[2022-02-03] MEDS: NYSTATIN 500,000 UNITS/5 ML SUSPENSION PO SCH ×5 (00:11→17:08)
[2022-02-03] MEDS: hydrALAZINE HCL 10 MG TABLET PO SCH ×3 (05:45→21:15)
[2022-02-03] MEDS: METOPROLOL TARTRATE 25 MG TABLET (FP) PO SCH ×3 (05:45→21:16)
[2022-02-03] MEDS: VERAPAMIL HCL 40 MG TABLET PO SCH ×3 (05:47→21:16)
[2022-02-03] MEDS: LEVOTHYROXINE NA 25 MCG TABLET (FP) PO SCH (06:07)
[2022-02-03] MEDS: INSULIN SLIDING SCALE (NOVOLOG) 1 VIAL SQ SCH ×4 (06:16→22:00)
[2022-02-03 07:57] LABS: INR 2.11 (0.83-1.09); PROTHROMBIN TIME (PATIENT) 24.5 SEC (9.7-13.0)
[2022-02-03 08:02] LABS: BASO % 1.5 % (0-2.0); EOS % 3.7 % (0-4.5); HEMOGLOBIN 9.3 GM/dL (10.7-15.3); MCH 30.8 pg (25.7-33.7); MCHC 33.1 g/dl (32.0-36.0); MEAN CELL VOLUME 93.2 fl (80-96); MONO % 7.7 % (3.8-10.2); NEUT % 61.1 % (42.8-82.8); PLATELET COUNT 184 10^3/uL (134-434); RBC 3.01 M/mm3 (3.60-5.2); RDW 16.3 % (11.6-15.6); WHITE BLOOD COUNT 3.7 K/mm3 (4.0-10.0)
[2022-02-03 08:17] LABS: CALCIUM 8.1 mg/dL (8.5-10.1)
[2022-02-03 08:18] LABS: BLOOD UREA NITROGEN 55.3 mg/dL (7-18); MAGNESIUM 2.3 mg/dL (1.8-2.4)
[2022-02-03 08:21] LABS: CREATININE 6.7 mg/dL (0.55-1.3); PHOSPHOROUS 4.4 mg/dL (2.5-4.9)
[2022-02-03 08:22] LABS: BILIRUBIN,TOTAL 0.4 mg/dL (0.2-1)
[2022-02-03] MEDS: AMINO ACIDS/PROTEIN HYDROLYS 30 ML LIQUID.PKT PO SCH ×3 (09:17→17:09)
[2022-02-03] MEDS: CALCIUM ACETATE 667 MG CAPSULE (FP) PO SCH ×4 (09:17→17:09)
[2022-02-03] MEDS: PANTOPRAZOLE 40 MG TABLET PO SCH (09:23)
[2022-02-03] MEDS: VITAMIN B COMP W-C 1 EA TABLET (NEPHRO-VITE) PO SCH (09:29)
[2022-02-03] MEDS: ALLOPURINOL 100 MG TABLET (FP) PO SCH (09:29)
[2022-02-03] MEDS: ACETAMINOPHEN 650 MG/20.3 ML ORAL SOLUTION (CUPS) PO PRN ×2 (13:52→21:51)
[2022-02-03] MEDS: SIMETHICONE 80 MG TAB.CHEW (FP) PO PRN (16:35)
[2022-02-03] MEDS: WARFARIN NA 5 MG TABLET PO SCH (17:05)
[2022-02-03] MEDS: MELATONIN 5 MG TABLETS PO SCH (21:14)
[2022-02-03] MEDS: ROSUVASTATIN CA 10 MG TABLET PO SCH (21:16)
[2022-02-03] MEDS: INSULIN (LEVEMIR) 100 UNITS/ML UNITS SQ SCH (21:17)
[2022-02-03] MEDS: QUEtiapine FUMARATE 50 MG TABLET PO SCH (21:17)
[2022-02-04] MEDS: NYSTATIN 500,000 UNITS/5 ML SUSPENSION PO SCH ×4 (01:18→18:06)
[2022-02-04] MEDS: hydrALAZINE HCL 10 MG TABLET PO SCH ×3 (05:52→22:55)
[2022-02-04] MEDS: METOPROLOL TARTRATE 25 MG TABLET (FP) PO SCH ×3 (05:52→22:55)
[2022-02-04] MEDS: VERAPAMIL HCL 40 MG TABLET PO SCH ×2 (05:52→14:42)
[2022-02-04] MEDS: SIMETHICONE 80 MG TAB.CHEW (FP) PO PRN (06:03)
[2022-02-04] MEDS: INSULIN SLIDING SCALE (NOVOLOG) 1 VIAL SQ SCH ×4 (06:10→23:00)
[2022-02-04] MEDS: LEVOTHYROXINE NA 25 MCG TABLET (FP) PO SCH (06:12)
[2022-02-04] MEDS: CALCIUM ACETATE 667 MG CAPSULE (FP) PO SCH ×3 (09:06→18:04)
[2022-02-04] MEDS: AMINO ACIDS/PROTEIN HYDROLYS 30 ML LIQUID.PKT PO SCH ×2 (09:06→18:06)
[2022-02-04] MEDS: VITAMIN B COMP W-C 1 EA TABLET (NEPHRO-VITE) PO SCH (10:04)
[2022-02-04] MEDS: PANTOPRAZOLE 40 MG TABLET PO SCH (10:05)
[2022-02-04] MEDS: ALLOPURINOL 100 MG TABLET (FP) PO SCH (10:05)
[2022-02-04 14:25] LABS: INR 2.85 (0.83-1.09); PROTHROMBIN TIME (PATIENT) 33.1 SEC (9.7-13.0)
[2022-02-04] MEDS ORDERED: EPOETIN ALFA-EPBX 10,000 UNIT/ML VIAL IVPUSH ONE (14:45)
[2022-02-04] MEDS: WARFARIN NA 5 MG TABLET PO SCH (18:04)
[2022-02-04] MEDS ORDERED: INSULIN (NOVOLOG) ASPART 100 UNITS/ML 10ML VIAL ONE (21:38)
[2022-02-04] MEDS: ACETAMINOPHEN 650 MG/20.3 ML ORAL SOLUTION (CUPS) PO PRN (22:53)
[2022-02-04] MEDS: MELATONIN 5 MG TABLETS PO SCH (22:55)
[2022-02-04] MEDS: ROSUVASTATIN CA 10 MG TABLET PO SCH (22:55)
[2022-02-04] MEDS: QUEtiapine FUMARATE 50 MG TABLET PO SCH (22:56)
[2022-02-05] MEDS: INSULIN (LEVEMIR) 100 UNITS/ML UNITS SQ SCH ×2 (00:02→21:09)
[2022-02-05] MEDS: NYSTATIN 500,000 UNITS/5 ML SUSPENSION PO SCH ×5 (00:03→23:23)
[2022-02-05] MEDS: VERAPAMIL HCL 40 MG TABLET PO SCH ×4 (00:04→21:08)
[2022-02-05] MEDS: METOPROLOL TARTRATE 25 MG TABLET (FP) PO SCH ×3 (06:58→21:08)
[2022-02-05] MEDS: hydrALAZINE HCL 10 MG TABLET PO SCH ×3 (06:58→21:08)
[2022-02-05] MEDS: LEVOTHYROXINE NA 25 MCG TABLET (FP) PO SCH (06:58)
[2022-02-05] MEDS: INSULIN SLIDING SCALE (NOVOLOG) 1 VIAL SQ SCH ×4 (07:05→21:10)
[2022-02-05 07:40] LABS: BASO % 1.1 % (0-2.0); EOS % 3.9 % (0-4.5); HEMATOCRIT 27.9 % (32.4-45.2); LYMPH % 22.4 % (8-40); MCH 30.7 pg (25.7-33.7); MCHC 32.4 g/dl (32.0-36.0); MEAN CELL VOLUME 94.8 fl (80-96); MONO % 8.5 % (3.8-10.2); NEUT % 64.1 % (42.8-82.8); PLATELET COUNT 228 10^3/uL (134-434); RBC 2.94 M/mm3 (3.60-5.2); RDW 16.7 % (11.6-15.6); WHITE BLOOD COUNT 3.7 K/mm3 (4.0-10.0)
[2022-02-05 07:59] LABS: CALCIUM 8.5 mg/dL (8.5-10.1)
[2022-02-05 08:00] LABS: BLOOD UREA NITROGEN 36.6 mg/dL (7-18); MAGNESIUM 2.3 mg/dL (1.8-2.4)
[2022-02-05 08:02] LABS: CREATININE 4.8 mg/dL (0.55-1.3); PHOSPHOROUS 3.3 mg/dL (2.5-4.9)
[2022-02-05 08:04] LABS: BILIRUBIN,TOTAL 0.7 mg/dL (0.2-1); TOT PROT 6.1 g/dl (6.4-8.2)
[2022-02-05] MEDS: CALCIUM ACETATE 667 MG CAPSULE (FP) PO SCH ×3 (09:07→16:47)
[2022-02-05] MEDS: AMINO ACIDS/PROTEIN HYDROLYS 30 ML LIQUID.PKT PO SCH ×2 (09:07→16:48)
[2022-02-05] MEDS: PANTOPRAZOLE 40 MG TABLET PO SCH (09:21)
[2022-02-05] MEDS: ALLOPURINOL 100 MG TABLET (FP) PO SCH (09:21)
[2022-02-05] MEDS: VITAMIN B COMP W-C 1 EA TABLET (NEPHRO-VITE) PO SCH (09:22)
[2022-02-05 10:33] LABS: INR 2.23 (0.83-1.09); PROTHROMBIN TIME (PATIENT) 25.9 SEC (9.7-13.0)
[2022-02-05] MEDS: ACETAMINOPHEN 650 MG/20.3 ML ORAL SOLUTION (CUPS) PO PRN (16:45)
[2022-02-05] MEDS: WARFARIN NA 5 MG TABLET PO SCH (17:44)
[2022-02-05] MEDS ORDERED: INSULIN (NOVOLOG) ASPART 100 UNITS/ML 10ML VIAL ONE (20:58)
[2022-02-05] MEDS ORDERED: INSULIN (LEVEMIR) 100 UNITS/ML UNITS SQ ONE (20:59)
[2022-02-05] MEDS: ROSUVASTATIN CA 10 MG TABLET PO SCH (21:08)
[2022-02-05] MEDS: MELATONIN 5 MG TABLETS PO SCH (21:09)
[2022-02-05] MEDS: QUEtiapine FUMARATE 50 MG TABLET PO SCH (21:10)
[2022-02-06] MEDS: NYSTATIN 500,000 UNITS/5 ML SUSPENSION PO SCH ×3 (06:10→17:07)
[2022-02-06] MEDS: LEVOTHYROXINE NA 25 MCG TABLET (FP) PO SCH (06:10)
[2022-02-06] MEDS: METOPROLOL TARTRATE 25 MG TABLET (FP) PO SCH ×2 (06:10→13:02)
[2022-02-06] MEDS: VERAPAMIL HCL 40 MG TABLET PO SCH ×2 (06:10→13:02)
[2022-02-06] MEDS: hydrALAZINE HCL 10 MG TABLET PO SCH ×2 (06:11→13:02)
[2022-02-06] MEDS: INSULIN SLIDING SCALE (NOVOLOG) 1 VIAL SQ SCH ×3 (06:11→16:25)
[2022-02-06 07:34] LABS: BASO % 1.4 % (0-2.0); EOS % 4.6 % (0-4.5); HEMATOCRIT 25.6 % (32.4-45.2); HEMOGLOBIN 8.4 GM/dL (10.7-15.3); LYMPH % 25.1 % (8-40); MCH 30.5 pg (25.7-33.7); MCHC 32.9 g/dl (32.0-36.0); MEAN CELL VOLUME 92.9 fl (80-96); MEAN PLT VOLUME 7.5 fl (7.5-11.1); MONO % 8.3 % (3.8-10.2); NEUT % 60.6 % (42.8-82.8); PLATELET COUNT 153 10^3/uL (134-434); RBC 2.76 M/mm3 (3.60-5.2); RDW 16.3 % (11.6-15.6); WHITE BLOOD COUNT 3.2 K/mm3 (4.0-10.0)
[2022-02-06 07:38] LABS: INR 2.48 (0.83-1.09); PROTHROMBIN TIME (PATIENT) 28.8 SEC (9.7-13.0)
[2022-02-06] MEDS: AMINO ACIDS/PROTEIN HYDROLYS 30 ML LIQUID.PKT PO SCH ×2 (08:02→17:08)
[2022-02-06] MEDS: CALCIUM ACETATE 667 MG CAPSULE (FP) PO SCH ×3 (08:02→17:07)
[2022-02-06 08:10] LABS: BLOOD UREA NITROGEN 54.8 mg/dL (7-18); CALCIUM 8.7 mg/dL (8.5-10.1)
[2022-02-06 08:12] LABS: MAGNESIUM 2.5 mg/dL (1.8-2.4)
[2022-02-06 08:13] LABS: CREATININE 6.1 mg/dL (0.55-1.3); PHOSPHOROUS 4.5 mg/dL (2.5-4.9)
[2022-02-06 08:15] LABS: BILIRUBIN,TOTAL 0.6 mg/dL (0.2-1); TOT PROT 5.9 g/dl (6.4-8.2)
[2022-02-06] MEDS: PANTOPRAZOLE 40 MG TABLET PO SCH (09:05)
[2022-02-06] MEDS: VITAMIN B COMP W-C 1 EA TABLET (NEPHRO-VITE) PO SCH (09:05)
[2022-02-06] MEDS: ALLOPURINOL 100 MG TABLET (FP) PO SCH (09:05)
[2022-02-06] MEDS: ACETAMINOPHEN 650 MG/20.3 ML ORAL SOLUTION (CUPS) PO PRN (09:32)
[2022-02-06] MEDS ORDERED: EPOETIN ALFA-EPBX 10,000 UNIT/ML VIAL IVPUSH ONE (13:00)
[2022-02-06] MEDS ORDERED: SODIUM CHLORIDE 250 ML IV PRN (13:00)
[2022-02-06 14:22] VITALS: PULSE 80
[2022-02-06 16:16] VITALS: BP 161/86; TEMP 98.4
[2022-02-06] MEDS: WARFARIN NA 5 MG TABLET PO SCH (17:07)
== END 2022-02-06 16:00 | disposition home or self-care (01) | DRG 130 ==
LOC: JER 10:42 → JERBED 15:15 → JICU 17:22 → J5S 01-22 13:06 → J4W 01-24 16:45 → J7W 01-31 16:34
PROVIDERS: ADMIT Internal Medicine; ATTEND Internal Medicine
PROC: 5A1955Z Respiratory Ventilation, Greater than 96 Consecutive Hours (ICD-10-PCS; principal; 2022-01-07)
PROC: 0BH17EZ Insertion of Endotracheal Airway into Trachea, Via Natural or Artificial Opening (ICD-10-PCS; 2022-01-07)
PROC: 5A1D70Z Performance of Urinary Filtration, Intermittent, Less than 6 Hours Per Day (ICD-10-PCS; 2022-01-07)
PROC: 5A1D70Z Performance of Urinary Filtration, Intermittent, Less than 6 Hours Per Day (ICD-10-PCS; 2022-01-09)
PROC: 5A1935Z Respiratory Ventilation, Less than 24 Consecutive Hours (ICD-10-PCS; 2022-01-13)
PROC: 0BH17EZ Insertion of Endotracheal Airway into Trachea, Via Natural or Artificial Opening (ICD-10-PCS; 2022-01-13)
PROC: 5A1955Z Respiratory Ventilation, Greater than 96 Consecutive Hours (ICD-10-PCS; 2022-01-15)
PROC: 0BH17EZ Insertion of Endotracheal Airway into Trachea, Via Natural or Artificial Opening (ICD-10-PCS; 2022-01-15)
DX: J96.01 Acute respiratory failure with hypoxia (principal); E11.22 Type 2 diabetes mellitus with diabetic chronic kidney disease; I13.2 Hypertensive heart and chronic kidney disease with heart failure and with stage 5 chronic kidney disease, or end stage renal disease; N18.6 End stage renal disease; Z99.2 Dependence on renal dialysis; E78.5 Hyperlipidemia, unspecified; E03.9 Hypothyroidism, unspecified; R74.01 Elevation of levels of liver transaminase levels; I31.3 Pericardial effusion (noninflammatory); J18.9 Pneumonia, unspecified organism; I50.33 Acute on chronic diastolic (congestive) heart failure; M10.9 Gout, unspecified; R19.7 Diarrhea, unspecified; J38.5 Laryngeal spasm; N39.0 Urinary tract infection, site not specified; D63.1 Anemia in chronic kidney disease; B37.0 Candidal stomatitis; R41.0 Disorientation, unspecified
CPT/HCPCS: 31500; 36415; 36430; 36600; 70450-TC; 71045-TC-FY; 74230-TC-FY; 80048; 80053; 81003; 82010; 82553; 82803; 82962; 83605; 83735; 83880; 84100; 84132; 84439; 84443; 84484; 85025; 85027; 85610; 85730; 86803; 86850; 86900; 86901; 86922; 87040; 87070; 87086; 87186; 87205; 87324; 87340; 87449; 87493; 92611-GN; 93005; 93010; 93306-TC; 93971; 94002; 94640; 94660; 94761; 97116-GP; 97162-GP; 99285-25; C9803-CS; J1100; J1644; P9047; P9058; Q5106; U0003; U0005